=== PATIENT | male | born 1960 | race Hispanic/Latino ===

== ENCOUNTER 2019-04-06 17:02 | Emergency (ER) | payer OTHER ==
[~2019-04-06 17:02] MED LIST: AEC81 PO; ENAL20TA PO; METF-446 PO; METO25TA6 PO; PRAV40TA3 PO
[2019-04-06] MEDS ORDERED: ASPIRIN 325 MG TABLET ONE (17:07)
[2019-04-06 17:38] LABS: APPEARANCE,URINE Clear (CLEAR); BILIRUBIN,URINE Negative (NEGATIVE); COLOR,URINE Yellow (YELLOW); GLUCOSE, URINE (UA) Negative (NEGATIVE); KETONES,URINE Negative (NEGATIVE); LEUKOCYTE ESTERASE ,URINE Negative (NEGATIVE); NITRATE,URINE Negative (NEGATIVE); OCCULT BLOOD,URINE Negative (NEGATIVE); PROTEIN,URINE Negative (NEGATIVE)
[2019-04-06 17:42] LABS: AMPHET/METH SCREEN,URINE NEGATIVE (NEGATIVE); BARBITURATE SCREEN, URINE NEGATIVE (NEGATIVE); BENZODIAZEPINES SCREEN,URINE NEGATIVE (NEGATIVE); CANNABINOID SCREEN,URINE NEGATIVE (NEGATIVE); COCAINE SCREEN,URINE NEGATIVE (NEGATIVE); OPIATE SCREEN,URINE NEGATIVE (NEGATIVE); PHENCYCLIDINE SCREEN,URINE NEGATIVE (NEGATIVE)
[2019-04-06 17:49] LABS: BASOPHILS % (AUTO) 0.3 % (0.0-5.0); EOSINOPHILS % (AUTO) 0.6 % (0.0-8.0); HEMATOCRIT 41.4 % (42-54); MEAN CORPUSCULAR HEMOGLOBIN 29.9 pg (27.0-33.0); MEAN CORPUSCULAR HGB CONC 33.6 g/dL (32.0-36.0); MONOCYTES % (AUTO) 11.2 % (3.0-13.0); NEUTROPHILS % (AUTO) 68.9 % (40.0-77.0); PLATELET COUNT (AUTO) 222 K/uL (130-400); RED BLOOD CELL COUNT(AUTO) 4.65 MIL/uL (4.50-6.20); WHITE BLOOD COUNT (AUTO) 6.3 K/uL (4.8-10.8)
[2019-04-06 18:11] LABS: CREATININE 1.4 mg/dL (0.5-1.5); POTASSIUM 4.1 mmol/L (3.5-5.1)
[2019-04-06 18:15] LABS: ALBUMIN 3.7 g/dL (3.5-5.0); BILIRUBIN,TOTAL 0.4 mg/dL (0.2-1.0); TOTAL PROTEIN, SERUM 7.6 g/dL (6.0-8.3)
[2019-04-06 18:17] LABS: INR 1.04 (0.85-1.15); PARTIAL THROMBOPLASTIN TIME 26.3 SEC (26.3-35.5); PROTHROMBIN TIME 10.9 SEC (9.6-11.6)
== END 2019-04-06 21:00 | disposition home or self-care (01) ==
LOC: EDH 17:02
DX: R07.89 Other chest pain (principal); I10 Essential (primary) hypertension; E11.65 Type 2 diabetes mellitus with hyperglycemia; Z91.041 Radiographic dye allergy status
CPT/HCPCS: 36415; 71045; 80053; 80305; 81003; 82550; 83880; 84484; 85025; 85610; 85730; 93005

== ENCOUNTER 2021-08-16 01:22 | Observation (INO) | payer OTHER ==
[~2021-08-16] VITALS: Ht 162.6 cm; Wt 90.7 kg
[~2021-08-16 01:22] MED LIST changes: -ENAL20TA PO; +ENAL20TA18 PO
[2021-08-16 01:37] LABS: BASOPHILS % (AUTO) 0.3 % (0.0-5.0); EOSINOPHILS % (AUTO) 3.5 % (0.0-8.0); HEMATOCRIT 41.3 % (42-54); LYMPHOCYTES % (AUTO) 35.7 % (21.0-51.0); MEAN CORPUSCULAR HEMOGLOBIN 29.8 pg (27.0-33.0); MEAN CORPUSCULAR HGB CONC 34.4 g/dL (32.0-36.0); MEAN CORPUSCULAR VOLUME 86.8 fL (79-99); MONOCYTES % (AUTO) 10.5 % (3.0-13.0); NEUTROPHILS % (AUTO) 49.6 % (40.0-77.0); PLATELET COUNT (AUTO) 297 K/uL (130-400); RED BLOOD CELL COUNT(AUTO) 4.76 MIL/uL (4.50-6.20); RED CELL DISTRIBUTION WIDTH 12.6 % (11.0-15.5); WHITE BLOOD COUNT (AUTO) 12.3 K/uL (4.8-10.8)
[2021-08-16 01:44] LABS: POTASSIUM 3.7 mmol/L (3.5-5.1)
[2021-08-16 01:48] LABS: ALBUMIN 3.8 g/dL (3.5-5.0); BILIRUBIN,TOTAL 0.2 mg/dL (0.2-1.0); TOTAL PROTEIN, SERUM 8.1 g/dL (6.0-8.3)
[2021-08-16] MEDS ORDERED: IOHEXOL 350 MG/ML 100ML INFUS..BTL IV ONE (01:52)
[2021-08-16] MEDS ORDERED: LACTATED RINGERS 1000ML 1,000 ML IV ONE (02:00)
[2021-08-16 02:29] LABS: APPEARANCE,URINE CLEAR (CLEAR); BILIRUBIN,URINE NEGATIVE (NEGATIVE); GLUCOSE, URINE (UA) NEGATIVE (NEGATIVE); KETONES,URINE NEGATIVE (NEGATIVE); LEUKOCYTE ESTERASE ,URINE NEGATIVE (NEGATIVE); NITRATE,URINE NEGATIVE (NEGATIVE); OCCULT BLOOD,URINE TRACE-LYSED (NEGATIVE); PROTEIN,URINE NEGATIVE (NEGATIVE); UROBILINOGEN,URINE 0.2 mg/dL (0.2-1.0)
[2021-08-16 02:35] LABS: COLOR,URINE STRAW (YELLOW)
[2021-08-16 02:37] LABS: AMPHET/METH SCREEN,URINE NEGATIVE (NEGATIVE); BARBITURATE SCREEN, URINE NEGATIVE (NEGATIVE); BENZODIAZEPINES SCREEN,URINE NEGATIVE (NEGATIVE); CANNABINOID SCREEN,URINE NEGATIVE (NEGATIVE); COCAINE SCREEN,URINE POSITIVE (NEGATIVE); OPIATE SCREEN,URINE NEGATIVE (NEGATIVE); PHENCYCLIDINE SCREEN,URINE NEGATIVE (NEGATIVE)
[2021-08-16 02:39] LABS: BACTERIA,URINE None Seen /HPF (None Seen); RBC,URINE None Seen /HPF (0-1); SQUAMOUS EPITHELIAL CELL,UR Rare /HPF (0-2); WBC,URINE None Seen /HPF (0-1)
[2021-08-16] MEDS ORDERED: NEOMY SULF/BACITRA/POLYMYXIN B 1 EACH PACKET TP ONE (03:35)
[2021-08-16] MEDS ORDERED: KETOROLAC 15MG/ML VIAL (15MG/ML) IV PRN (04:00)
[2021-08-16] MEDS ORDERED: ACETAMINOPHEN 500 MG TABLET PO PRN (04:00)
[2021-08-16] MEDS: MORPHINE 4 MG SYG IVP PRN ×2 (04:48→10:46)
[2021-08-16] MEDS ORDERED: TETANUS/DIPHTHERIA TOXOID [ADULT] 0.5 ML VIAL IM ONE (04:59)
[2021-08-16 10:30] VITALS: BP 131/77
[2021-08-16 11:20] VITALS: BP 128/80
[2021-08-16 15:20] VITALS: BP 129/79
== END 2021-08-16 17:40 | disposition home or self-care (01) ==
LOC: EDH 01:22 → EDHIP 03:08 → EEVIPCON 03:08 → 4CH 10:30
PROVIDERS: ADMIT Student in an Organized Health Care Education/Training Program; ATTEND Student in an Organized Health Care Education/Training Program
DX: S81.831A Puncture wound without foreign body, right lower leg, initial encounter (principal); Z20.822 Contact with and (suspected) exposure to COVID-19; S81.832A Puncture wound without foreign body, left lower leg, initial encounter; W34.00XA Accidental discharge from unspecified firearms or gun, initial encounter; Y93.89 Activity, other specified; Y92.830 Public park as the place of occurrence of the external cause; Z23 Encounter for immunization
CPT/HCPCS: 36415; 71045; 73551; 73560; 74018; 74176; 75635; 80053; 80305; 81001; 84484; 85014; 85018; 85025; 86850; 86900; 86901; 86923; 87635; 90471; 90714; 96361; 96374; 96376; 99291; G0378 ×14; J2270 ×2; Q9967

== ENCOUNTER 2021-08-31 12:18 | Emergency (ER) | payer OTHER ==
[~2021-08-31] VITALS: Ht 165.1 cm; Wt 77.6 kg
[2021-08-31 12:20] VITALS: BP 145/84
== END 2021-08-31 15:12 | disposition left against medical advice (07) ==
LOC: EDH 12:18
DX: S81.842A Puncture wound with foreign body, left lower leg, initial encounter (principal); E11.9 Type 2 diabetes mellitus without complications; I10 Essential (primary) hypertension; W34.09XA Accidental discharge from other specified firearms, initial encounter; Y93.89 Activity, other specified; Y92.89 Other specified places as the place of occurrence of the external cause; Y99.8 Other external cause status; Z53.21 Procedure and treatment not carried out due to patient leaving prior to being seen by health care provider

== ENCOUNTER 2022-09-06 11:36 | Emergency (ER) | payer BC, OTHER ==
[~2022-09-06] VITALS: Ht 154.9 cm; Wt 76.2 kg
[2022-09-06 12:28] LABS: BASOPHILS % (AUTO) 0.5 % (0.0-5.0); EOSINOPHILS % (AUTO) 2.8 % (0.0-8.0); HEMATOCRIT 43.1 % (42-54); LYMPHOCYTES % (AUTO) 18.8 % (21.0-51.0); MEAN CORPUSCULAR HEMOGLOBIN 30.4 pg (27.0-33.0); MEAN CORPUSCULAR HGB CONC 34.6 g/dL (32.0-36.0); MONOCYTES % (AUTO) 8.8 % (3.0-13.0); NEUTROPHILS % (AUTO) 68.8 % (40.0-77.0); PLATELET COUNT (AUTO) 335 K/uL (130-400); RED CELL DISTRIBUTION WIDTH 12.3 % (11.0-15.5); WHITE BLOOD COUNT (AUTO) 7.8 K/uL (4.8-10.8)
[2022-09-06 12:46] LABS: CREATININE 0.9 mg/dL (0.5-1.5); POTASSIUM 4.3 mmol/L (3.5-5.1)
[2022-09-06 12:51] LABS: ALBUMIN 3.5 g/dL (3.5-5.0)
[2022-09-06 14:04] VITALS: BP 159/78; PULSE 85; RESP 18; O2SAT 98
[2022-09-06] MEDS ORDERED: CEPH500B PO (14:30)
== END 2022-09-06 14:53 | disposition home or self-care (01) ==
LOC: EDH 11:36
DX: J32.9 Chronic sinusitis, unspecified (principal); R04.0 Epistaxis; I10 Essential (primary) hypertension; E11.9 Type 2 diabetes mellitus without complications; Z98.890 Other specified postprocedural states; Z91.040 Latex allergy status
CPT/HCPCS: 36415; 80053; 82550; 83874; 84484; 85025; 93005; 99281

== ENCOUNTER 2023-04-09 22:12 | Emergency (ER) | payer BC ==
[~2023-04-09] VITALS: Ht 165.1 cm; Wt 73.0 kg
[~2023-04-09 22:12] MED LIST changes: -AEC81 PO; +CEPH500B PO; -ENAL20TA18 PO; -METF-446 PO; -METO25TA6 PO; -PRAV40TA3 PO
[2023-04-09 22:39] LABS: BASOPHILS # (AUTO) 0.02 K/uL (0.00-0.20); BASOPHILS % (AUTO) 0.2 % (0.0-5.0); EOSINOPHILS # (AUTO) 0.06 K/uL (0.00-0.70); EOSINOPHILS % (AUTO) 0.7 % (0.0-8.0); HEMATOCRIT 37.7 % (42-54); IMMATURE GRANULOCYTE ABSOLUTE 0.04 K/uL (0-1); LYMPHOCYTES # (AUTO) 1.5 K/uL (1.0-4.8); LYMPHOCYTES % (AUTO) 18.1 % (21.0-51.0); MEAN CORPUSCULAR HEMOGLOBIN 31.3 pg (27.0-33.0); MEAN CORPUSCULAR VOLUME 89.3 fL (79-99); MONOCYTES # (AUTO) 0.9 K/uL (0.1-1.0); MONOCYTES % (AUTO) 10.2 % (3.0-13.0); NEUTROPHILS % (AUTO) 70.3 % (40.0-77.0); PLATELET COUNT (AUTO) 275 K/uL (130-400); RED BLOOD CELL COUNT(AUTO) 4.22 MIL/uL (4.50-6.20); RED CELL DISTRIBUTION WIDTH 12.4 % (11.0-15.5); WHITE BLOOD COUNT (AUTO) 8.5 K/uL (4.8-10.8)
[2023-04-09 22:50] LABS: INR <= 0.93 (0.85-1.15); PROTHROMBIN TIME 10.7 SEC (9.6-11.6)
[2023-04-09 22:54] LABS: ALBUMIN 3.3 g/dL (3.5-5.0); BILIRUBIN,TOTAL 0.3 mg/dL (0.2-1.0); CREATININE 0.8 mg/dL (0.5-1.5); TOTAL PROTEIN, SERUM 7.4 g/dL (6.0-8.3)
[2023-04-09 23:19] LABS: B-TYPE NATRIURETIC PEPTIDE 75 pg/mL (0-100)
[2023-04-10 01:31] LABS: APPEARANCE,URINE CLEAR (CLEAR); BILIRUBIN,URINE NEGATIVE (NEGATIVE); COLOR,URINE LIGHT-YELLOW (YELLOW); GLUCOSE, URINE (UA) >=1000 mg/dL (NEGATIVE); KETONES,URINE NEGATIVE (NEGATIVE); LEUKOCYTE ESTERASE ,URINE NEGATIVE Leu/uL (NEGATIVE); NITRATE,URINE NEGATIVE (NEGATIVE); OCCULT BLOOD,URINE NEGATIVE (NEGATIVE); PROTEIN,URINE NEGATIVE (NEGATIVE); UROBILINOGEN,URINE 0.2 mg/dL (0.2-1.0)
[2023-04-10 01:32] LABS: ADD UA MICROSCOPIC YES; BACTERIA,URINE RARE /HPF (None Seen); MUCUS,URINE RARE LPF (None Seen); RBC,URINE 0-1 /HPF (0-1); SQUAMOUS EPITHELIAL CELL,UR RARE /HPF (0-2)
[2023-04-10 01:34] LABS: AMPHET/METH SCREEN,URINE NEGATIVE (NEGATIVE); BARBITURATE SCREEN, URINE NEGATIVE (NEGATIVE); BENZODIAZEPINES SCREEN,URINE NEGATIVE (NEGATIVE); CANNABINOID SCREEN,URINE POSITIVE (NEGATIVE); COCAINE SCREEN,URINE POSITIVE (NEGATIVE); OPIATE SCREEN,URINE NEGATIVE (NEGATIVE); PHENCYCLIDINE SCREEN,URINE NEGATIVE (NEGATIVE)
[2023-04-10] MEDS: CYCLOBENZAPRINE HCL 10 MG TABLET PO ONE (03:54)
[2023-04-10] MEDS: GABAPENTIN 300 MG CAPSULE PO SCH (03:54)
[2023-04-10] MEDS: POTASSIUM BICARB/CIT AC 25 MEQ TABLET.EFF PO ONE (03:54)
[2023-04-10] MEDS: IBUPROFEN 800 MG TAB PO ONE (03:55)
[2023-04-10] MEDS ORDERED: CYCL-309 PO (05:02)
[2023-04-10] MEDS ORDERED: IBUP-1493 PO (05:02)
[2023-04-10] MEDS ORDERED: GABA300C PO (05:02)
[2023-04-10 05:04] VITALS: BP 140/76; PULSE 105; RESP 17; O2SAT 98
== END 2023-04-10 05:17 | disposition home or self-care (01) ==
LOC: EDH 22:12
DX: F19.10 Other psychoactive substance abuse, uncomplicated (principal); M54.2 Cervicalgia; R07.89 Other chest pain; E11.9 Type 2 diabetes mellitus without complications; E78.00 Pure hypercholesterolemia, unspecified; I10 Essential (primary) hypertension; F17.200 Nicotine dependence, unspecified, uncomplicated; Z91.041 Radiographic dye allergy status
CPT/HCPCS: 36415; 72125; 80053; 80305; 81001; 83880; 84484; 85025; 85378; 85610; 93005

== ENCOUNTER 2023-09-05 16:18 | Emergency (ER) | payer BC ==
[~2023-09-05] VITALS: Ht 165.1 cm; Wt 76.2 kg
[~2023-09-05 16:18] MED LIST changes: -CEPH500B PO; +CYCL-309 PO; +GABA300C PO; +IBUP-1493 PO
[2023-09-05] MEDS: 0.9%NACL 1000ML 1,000 ML IV ONE (17:25)
[2023-09-05 17:46] LABS: BASOPHILS # (AUTO) 0.03 K/uL (0.00-0.20); BASOPHILS % (AUTO) 0.4 % (0.0-5.0); EOSINOPHILS # (AUTO) 0.15 K/uL (0.00-0.70); EOSINOPHILS % (AUTO) 2.1 % (0.0-8.0); HEMATOCRIT 43.5 % (42-54); IMMATURE GRANULOCYTE ABSOLUTE 0.03 K/uL (0-1); LYMPHOCYTES # (AUTO) 1.5 K/uL (1.0-4.8); LYMPHOCYTES % (AUTO) 20.8 % (21.0-51.0); MEAN CORPUSCULAR HEMOGLOBIN 30.4 pg (27.0-33.0); MEAN CORPUSCULAR HGB CONC 34.5 g/dL (32.0-36.0); MEAN CORPUSCULAR VOLUME 88.2 fL (79-99); MONOCYTES # (AUTO) 0.6 K/uL (0.1-1.0); MONOCYTES % (AUTO) 8.1 % (3.0-13.0); NEUTROPHILS % (AUTO) 68.2 % (40.0-77.0); PLATELET COUNT (AUTO) 301 K/uL (130-400); RED BLOOD CELL COUNT(AUTO) 4.93 MIL/uL (4.50-6.20); RED CELL DISTRIBUTION WIDTH 13.2 % (11.0-15.5); WHITE BLOOD COUNT (AUTO) 7.3 K/uL (4.8-10.8)
[2023-09-05 18:01] LABS: ALBUMIN 3.5 g/dL (3.5-5.0); BILIRUBIN,TOTAL 0.4 mg/dL (0.2-1.0); TOTAL PROTEIN, SERUM 7.8 g/dL (6.0-8.3)
[2023-09-05 18:22] VITALS: BP 147/70; PULSE 72; RESP 18; O2SAT 98
[2023-09-05 18:29] LABS: APPEARANCE,URINE CLEAR (CLEAR); BILIRUBIN,URINE NEGATIVE (NEGATIVE); COLOR,URINE YELLOW (YELLOW); GLUCOSE, URINE (UA) >=1000 mg/dL (NEGATIVE); KETONES,URINE NEGATIVE (NEGATIVE); LEUKOCYTE ESTERASE ,URINE NEGATIVE Leu/uL (NEGATIVE); NITRATE,URINE NEGATIVE (NEGATIVE); OCCULT BLOOD,URINE NEGATIVE (NEGATIVE); PH,URINE 5.5 (5.0-8.0); PROTEIN,URINE 30 mg/dL (NEGATIVE); UROBILINOGEN,URINE 0.2 mg/dL (0.2-1.0)
[2023-09-05 18:30] LABS: ADD UA MICROSCOPIC YES
[2023-09-05 18:32] LABS: MUCUS,URINE FEW LPF (None Seen); RBC,URINE 0-1 /HPF (0-1); SQUAMOUS EPITHELIAL CELL,UR RARE /HPF (0-2)
== END 2023-09-05 19:11 | disposition home or self-care (01) ==
LOC: EDH 16:18
DX: E11.65 Type 2 diabetes mellitus with hyperglycemia (principal); E86.0 Dehydration; R11.0 Nausea; I10 Essential (primary) hypertension; Z91.041 Radiographic dye allergy status; Z79.899 Other long term (current) drug therapy; Z98.890 Other specified postprocedural states
CPT/HCPCS: 99284; 84484; 80053; 85025; 82948; 82010; 81001; 36415; 93005; J7030

== ENCOUNTER 2023-10-07 05:06 | Emergency (ER) | payer BC ==
[~2023-10-07] VITALS: Ht 172.7 cm; Wt 76.2 kg
[2023-10-07 05:58] LABS: BASOPHILS # (AUTO) 0.02 K/uL (0.00-0.20); BASOPHILS % (AUTO) 0.3 % (0.0-5.0); EOSINOPHILS # (AUTO) 0.08 K/uL (0.00-0.70); EOSINOPHILS % (AUTO) 1.2 % (0.0-8.0); HEMATOCRIT 39.2 % (42-54); IMMATURE GRANULOCYTE ABSOLUTE 0.02 K/uL (0-1); LYMPHOCYTES # (AUTO) 1.1 K/uL (1.0-4.8); LYMPHOCYTES % (AUTO) 16.1 % (21.0-51.0); MEAN CORPUSCULAR HEMOGLOBIN 31.3 pg (27.0-33.0); MEAN CORPUSCULAR VOLUME 87.1 fL (79-99); MONOCYTES # (AUTO) 0.5 K/uL (0.1-1.0); MONOCYTES % (AUTO) 7.2 % (3.0-13.0); NEUTROPHILS # (AUTO) 5.1 K/uL (1.8-7.7); NEUTROPHILS % (AUTO) 74.9 % (40.0-77.0); PLATELET COUNT (AUTO) 291 K/uL (130-400); RED CELL DISTRIBUTION WIDTH 12.7 % (11.0-15.5); WHITE BLOOD COUNT (AUTO) 6.8 K/uL (4.8-10.8)
[2023-10-07 06:19] LABS: INR 1.03 (0.85-1.15); PROTHROMBIN TIME 11.1 SEC (9.6-11.6)
[2023-10-07 06:20] LABS: PARTIAL THROMBOPLASTIN TIME 26.3 SEC (26.3-35.5)
[2023-10-07 06:25] LABS: ALBUMIN 3.4 g/dL (3.5-5.0); BILIRUBIN,TOTAL 0.3 mg/dL (0.2-1.0); CREATININE 0.9 mg/dL (0.5-1.3); POTASSIUM 3.6 mmol/L (3.5-5.1); TOTAL PROTEIN, SERUM 7.5 g/dL (6.0-8.3)
[2023-10-07] MEDS ORDERED: ATOR40TA69 PO (08:33)
[2023-10-07] MEDS ORDERED: ASPI-1197 PO (08:33)
[2023-10-07 08:45] VITALS: BP 141/83; PULSE 79; RESP 18; O2SAT 99
[2023-10-07 09:01] LABS: APPEARANCE,URINE CLEAR (CLEAR); BILIRUBIN,URINE NEGATIVE (NEGATIVE); COLOR,URINE COLORLESS (YELLOW); GLUCOSE, URINE (UA) >=1000 mg/dL (NEGATIVE); KETONES,URINE NEGATIVE (NEGATIVE); LEUKOCYTE ESTERASE ,URINE NEGATIVE Leu/uL (NEGATIVE); NITRATE,URINE NEGATIVE (NEGATIVE); OCCULT BLOOD,URINE NEGATIVE (NEGATIVE); PH,URINE 6.5 (5.0-8.0); PROTEIN,URINE NEGATIVE (NEGATIVE); UROBILINOGEN,URINE 0.2 mg/dL (0.2-1.0)
[2023-10-07 09:02] LABS: ADD UA MICROSCOPIC YES
[2023-10-07 09:09] LABS: AMPHET/METH SCREEN,URINE NEGATIVE (NEGATIVE); BARBITURATE SCREEN, URINE NEGATIVE (NEGATIVE); BENZODIAZEPINES SCREEN,URINE NEGATIVE (NEGATIVE); CANNABINOID SCREEN,URINE POSITIVE (NEGATIVE); COCAINE SCREEN,URINE POSITIVE (NEGATIVE); OPIATE SCREEN,URINE NEGATIVE (NEGATIVE); PHENCYCLIDINE SCREEN,URINE NEGATIVE (NEGATIVE)
[2023-10-07 09:18] LABS: SQUAMOUS EPITHELIAL CELL,UR RARE /HPF (0-2); WBC,URINE 0-1 /HPF (0-1)
== END 2023-10-07 08:48 | disposition home or self-care (01) ==
LOC: EDH 05:06
DX: R07.89 Other chest pain (principal); E11.65 Type 2 diabetes mellitus with hyperglycemia; I10 Essential (primary) hypertension; F17.200 Nicotine dependence, unspecified, uncomplicated; F19.10 Other psychoactive substance abuse, uncomplicated; Z79.82 Long term (current) use of aspirin; Z79.899 Other long term (current) drug therapy; Z91.041 Radiographic dye allergy status; Z90.79 Acquired absence of other genital organ(s); Z98.890 Other specified postprocedural states
CPT/HCPCS: 36415; 71045; 80053; 80305; 81001; 84484; 85025; 85610; 85730; 93005

== ENCOUNTER 2023-10-31 10:52 | Emergency (ER) | payer BC ==
[~2023-10-31] VITALS: Ht 165.1 cm; Wt 76.2 kg
[~2023-10-31 10:52] MED LIST changes: +ASPI-1197 PO; +ATOR40TA69 PO
[2023-10-31 11:20] LABS: BASOPHILS # (AUTO) 0.02 K/uL (0.00-0.20); BASOPHILS % (AUTO) 0.3 % (0.0-5.0); EOSINOPHILS # (AUTO) 0.19 K/uL (0.00-0.70); EOSINOPHILS % (AUTO) 2.6 % (0.0-8.0); HEMATOCRIT 42.6 % (42-54); IMMATURE GRANULOCYTE ABSOLUTE 0.03 K/uL (0-1); LYMPHOCYTES # (AUTO) 2.1 K/uL (1.0-4.8); LYMPHOCYTES % (AUTO) 28.9 % (21.0-51.0); MEAN CORPUSCULAR HEMOGLOBIN 30.5 pg (27.0-33.0); MEAN CORPUSCULAR HGB CONC 35.4 g/dL (32.0-36.0); MEAN CORPUSCULAR VOLUME 86.1 fL (79-99); MONOCYTES # (AUTO) 0.7 K/uL (0.1-1.0); MONOCYTES % (AUTO) 9.9 % (3.0-13.0); NEUTROPHILS # (AUTO) 4.2 K/uL (1.8-7.7); NEUTROPHILS % (AUTO) 57.9 % (40.0-77.0); PLATELET COUNT (AUTO) 309 K/uL (130-400); RED BLOOD CELL COUNT(AUTO) 4.95 MIL/uL (4.50-6.20); RED CELL DISTRIBUTION WIDTH 13.1 % (11.0-15.5); WHITE BLOOD COUNT (AUTO) 7.3 K/uL (4.8-10.8)
[2023-10-31 11:30] LABS: CREATININE 1.2 mg/dL (0.5-1.3); POTASSIUM 3.7 mmol/L (3.5-5.1)
[2023-10-31] MEDS: MAG/ALUM/SIMETH 30 ML UDCUP PO ONE (11:30)
[2023-10-31] MEDS: FAMOTIDINE 20MG VIAL IV ONE (11:30)
[2023-10-31 12:10] LABS: APPEARANCE,URINE CLEAR (CLEAR); BILIRUBIN,URINE NEGATIVE (NEGATIVE); COLOR,URINE LIGHT-YELLOW (YELLOW); GLUCOSE, URINE (UA) NEGATIVE (NEGATIVE); KETONES,URINE NEGATIVE (NEGATIVE); LEUKOCYTE ESTERASE ,URINE NEGATIVE Leu/uL (NEGATIVE); NITRATE,URINE NEGATIVE (NEGATIVE); OCCULT BLOOD,URINE NEGATIVE (NEGATIVE); PROTEIN,URINE NEGATIVE (NEGATIVE); UROBILINOGEN,URINE 0.2 mg/dL (0.2-1.0)
[2023-10-31 12:15] LABS: ADD UA MICROSCOPIC NO
[2023-10-31] MEDS ORDERED: SUCR1TAB28 PO (12:39)
[2023-10-31] MEDS ORDERED: acetaMINOPHEN 325 MG TAB ONE (13:18)
[2023-10-31 13:23] VITALS: BP 115/95; PULSE 72; RESP 18; TEMP 97.5; O2SAT 99
== END 2023-10-31 13:26 | disposition home or self-care (01) ==
LOC: EDH 10:52
DX: K29.00 Acute gastritis without bleeding (principal); E87.1 Hypo-osmolality and hyponatremia; E11.65 Type 2 diabetes mellitus with hyperglycemia; R74.8 Abnormal levels of other serum enzymes; I10 Essential (primary) hypertension; F17.200 Nicotine dependence, unspecified, uncomplicated; Z91.041 Radiographic dye allergy status; Z79.82 Long term (current) use of aspirin; Z79.899 Other long term (current) drug therapy; Z90.79 Acquired absence of other genital organ(s); Z89.021 Acquired absence of right finger(s)
CPT/HCPCS: 99284; 96374; 84484; 80048; 83690; 85025; 81003; 36415; 93005; J3490

== ENCOUNTER 2024-01-07 01:31 | Inpatient (IN) | payer BC ==
[~2024-01-07] VITALS: Ht 165.1 cm; Wt 77.2 kg
[~2024-01-07 01:31] MED LIST changes: +SUCR1TAB28 PO
[2024-01-07 01:54] LABS: BASOPHILS # (AUTO) 0.03 K/uL (0.00-0.20); BASOPHILS % (AUTO) 0.4 % (0.0-5.0); EOSINOPHILS # (AUTO) 0.14 K/uL (0.00-0.70); EOSINOPHILS % (AUTO) 1.8 % (0.0-8.0); HEMATOCRIT 41.9 % (42-54); IMMATURE GRANULOCYTE ABSOLUTE 0.03 K/uL (0-1); LYMPHOCYTES # (AUTO) 1.6 K/uL (1.0-4.8); LYMPHOCYTES % (AUTO) 20.3 % (21.0-51.0); MEAN CORPUSCULAR HEMOGLOBIN 30.9 pg (27.0-33.0); MEAN CORPUSCULAR HGB CONC 33.9 g/dL (32.0-36.0); MEAN CORPUSCULAR VOLUME 91.1 fL (79-99); MONOCYTES # (AUTO) 0.7 K/uL (0.1-1.0); MONOCYTES % (AUTO) 8.4 % (3.0-13.0); NEUTROPHILS # (AUTO) 5.4 K/uL (1.8-7.7); NEUTROPHILS % (AUTO) 68.7 % (40.0-77.0); PLATELET COUNT (AUTO) 276 K/uL (130-400); RED CELL DISTRIBUTION WIDTH 13.1 % (11.0-15.5); WHITE BLOOD COUNT (AUTO) 7.8 K/uL (4.8-10.8)
[2024-01-07 01:59] LABS: POTASSIUM 3.7 mmol/L (3.5-5.1)
[2024-01-07 02:14] LABS: B-TYPE NATRIURETIC PEPTIDE 20 pg/mL (0-100)
--- NOTE | 2024-01-07 02:44 | ERN ---
ED Note History of Present Illness Stated Complaint: CHEST PAIN Chief Complaint: Chest Pain Time Seen by MD: 01:20 Dictation: This is 63-year-old male with multiple medical problems presented to the emergency room with complaints of left-sided chest discomfort. Initially he experienced in the left upper quadrant area and tried to rest and watch TV when he began experiencing the pain go up into the left chest area. He got concerned could not sleep and came into the ER for further evaluation. He denied any heart attack stent placements. He had a stress test many years ago He denied any diaphoresis syncope or palpitations He admitted to drinking beer last night prior to sleeping and also smoking marijuana. He also did cocaine a week ago per his report Temperature 97.2 pulse 94 respirations 20 blood pressure 159/83 with a pulse oximetry of 99% on room air His chronic medical problems include diabetes mellitus, hypertension, polysubstance abuse and prostate cancer Allergies: Coded Allergies: Iodinated Contrast Media - IV Dye (Unverified Allergy, Severe, HIVES, 08/30/14) No Allergy Information Available (Verified Allergy, Unknown, 08/30/14) Home Meds Active Scripts Sucralfate (Carafate) 1 Gram Tablet, 1 GM PO ACHS for 10 Days, #40 TAB Prov:JEFFRY VERDUZCO NP 10/31/23 Atorvastatin Calcium (LIPITOR) 40 Mg Tablet, 40 MG PO DAILYDINNER, #30 TAB Prov:LIZBETH SUNSHINE MD 10/07/23 Aspirin (Aspirin) 81 Mg Tab.chew, 81 MG PO DAILY, #30 TAB.CHEW Prov:LIZBETH SUNSHINE MD 10/07/23 Ibuprofen (Motrin/Advil) 800 Mg Tab, 800 MG PO TID, #30 TAB Prov:MAR GIORDANO MD 04/10/23 Gabapentin (Neurontin) 300 Mg Capsule, 300 MG PO TID, #60 CAP Prov:MAR GIORDANO MD 04/10/23 Cyclobenzaprine HCl (Cyclobenzaprine HCl) 10 Mg Tablet, 10 MG PO TID, #60 TAB Prov:MAR GIORDANO MD 04/10/23 Past Medical History Past Medical History: Cancer, Diabetes-Type II, Hypertension Additional Past Medical Hx: PROSTATE Surgical History: Other Surgical History Other: PROSTATE REMOVAL, RT 3RD DIGIT AMPUTATION Family History: DM, HTN Social History: Smokers, Drugs, ETOH, Lives with family, Other RN Note Reviewed/Agreed w/PFSH: Yes Review of System Dictation Constitutional: Negative for fever,chills, and weight loss Eyes: Negative for injury, pain,redness, and discharge ENT: Negative for injury,pain or swelling Cardiovascular: Positive for chest pain, denies palpitations, and edema Respiratory: Negative for shortness of breath, cough, and wheezing, Abdomen/GI: Negative for abdominal pain, nausea, vomiting, diarrhea, and constipation Back: Negative for injury and pain : Negative for injury, bleeding and discharge MS/Extremity: Negative for injury and deformity Skin: Negative for rash, and discoloration Neuro: Negative for headache, weakness, numbness, tingling, and seizure Psych: Negative for suicide ideation, homicidal ideation, and hallucinations Initial Vital Sign VS Vital Signs Date Time Temp Pulse Resp B/P (MAP) Pulse Ox O2 Delivery O2 Flow Rate FiO2 01/07/24 01:33 97.2 94 20 159/83 99 Room Air 0 01/07/24 01:50 21 Physical Exam Dictation General: awake, alert, NAD overweight looks much older Head/Face: Normocephalic, atraumatic Eyes: PERRL, EOMI, vision at baseline ENT: oral cavity clear, TMs clear, no signs of infection Neck: Trachea midline, supple, no nuchal rigidity Cardiovascular: RRR, normal S1/S2, No MRGs, no JVD, there is tenderness in the left chest area Respiratory: CTAB, no respiratory distress, No rales or wheezes Abdomen: Soft, non-tender, non-distended, normal bowel sounds, no guarding or rebound. Skin: Warm, dry, normal turgor, no rash MS/Extremity: Pulses equal, no cyanosis, neurovascular intact, FROM Neuro: COAx4, GCS 15, strength 5/5, CN 2-12 intact, normal cerebellar exam, normal gait, Psych: Normal behavior, mood, and affect normal Extremities-trace edema without any palpable cords, Homans sign is negative Results (Laboratory/Radiology) Laboratory/Radiology Laboratory Tests Test 01/07/24 01:45 01/07/24 02:11 White Blood Count 7.8 K/uL (4.8-10.8) Red Blood Count 4.60 MIL/uL (4.50-6.20) Hemoglobin 14.2 g/dL (14.0-18.0) Hematocrit 41.9 % (42-54) L Mean Corpuscular Volume 91.1 fL (79-99) Mean Corpuscular Hemoglobin 30.9 pg (27.0-33.0) Mean Corpuscular Hemoglobin Concent 33.9 g/dL (32.0-36.0) Red Cell Distribution Width 13.1 % (11.0-15.5) Platelet Count 276 K/uL (130-400) Mean Platelet Volume 8.5 fL (7.5-10.5) Immature Granulocyte % (Auto) 0.4 % (0-1) Neutrophils (%) (Auto) 68.7 % (40.0-77.0) Lymphocytes (%) (Auto) 20.3 % (21.0-51.0) L Monocytes (%) (Auto) 8.4 % (3.0-13.0) Eosinophils (%) (Auto) 1.8 % (0.0-8.0) Basophils (%) (Auto) 0.4 % (0.0-5.0) Neutrophils # (Auto) 5.4 K/uL (1.8-7.7) Lymphocytes # (Auto) 1.6 K/uL (1.0-4.8) Monocytes # (Auto) 0.7 K/uL (0.1-1.0) Eosinophils # (Auto) 0.14 K/uL (0.00-0.70) Basophils # (Auto) 0.03 K/uL (0.00-0.20) Absolute Immature Granulocyte (auto 0.03 K/uL (0-1) Nucleated Red Blood Cells 0.0 % (0.0-0.19) Sodium Level 138 mmol/L (136-145) Potassium Level 3.7 mmol/L (3.5-5.1) Chloride Level 104 mmol/L (101-111) Carbon Dioxide Level 30 mmol/L (21-32) Blood Urea Nitrogen 11 mg/dL (7-18) Creatinine 1.0 mg/dL (0.5-1.3) Glomerular Filtration Rate Calc 84 mL/min (>90) Random Glucose 158 mg/dL (70-105) H Total Calcium 9.1 mg/dL (8.5-10.1) Total Creatine Kinase 76 U/L (21-232) # B-Type Natriuretic Peptide 20 pg/mL (0-100) Troponin I < 0.05 ng/mL (0.00-0.05) Labs Reviewed?: Yes EKG Comment: Twelve lead EKG done on 01/07/2024 at 1:37 a.m. showed a heart rate of 86, [place] interval 154, QRS 82, QT/QTC 357/428 Impression normal sinus rhythm with no acute ST elevations noted. Suggestion of Q-waves in the lead 3 noted. No deep acute ST depressions either. Interpreted by ER MD Dr. Fox ED Course ED Course Orders Procedure Category Date Status Time Vital Signs Per CPOE 01/07/24 Transmitted Routine 01:37 B-Type Natriuretic LAB 01/07/24 Complete Peptide 01:37 Chest 1vw RAD 01/07/24 Taken 01:37 12 Lead Ekg Tracing- EKG 01/07/24 Logged Technical 01:37 Oxygen By Nc/Pulse Ox CPOE 01/07/24 Transmitted 01:37 Maintain Iv CPOE 01/07/24 Transmitted 01:37 Iv Insertion CPOE 01/07/24 Transmitted 01:37 Cardiac Monitoring CPOE 01/07/24 Transmitted 01:37 Pulse Oximetry With CPOE 01/07/24 Transmitted Vs And Prn 01:37 Cbc With Differential LAB 01/07/24 Complete 01:37 Activity: Br W/Brp CPOE 01/07/24 Transmitted With Assist 01:37 Creatine Kinase, Total LAB 01/07/24 Complete 01:37 Urinalysis Profile LAB 01/07/24 Logged 01:37 Troponin Poc Order LAB 01/07/24 Complete Only 01:37 Bedside Troponin-I LAB.ER 01/07/24 In Process (Poc) 01:37 Basic Metabolic Panel LAB 01/07/24 Complete 01:37 Drug Screen Urine LAB 01/07/24 Logged 01:37 Edm Admit Bridge Order ADM 01/07/24 Transmitted 03:39 Admit Orders ADM 01/07/24 Transmitted 03:39 Vital Signs Date Time Temp Pulse Resp B/P (MAP) Pulse Ox O2 Delivery O2 Flow Rate FiO2 01/07/24 01:50 98.4 92 18 141/72 99 Room Air* 0 21 01/07/24 01:33 97.2 94 20 159/83 99 Room Air 0 We will perform diagnostic labs, advanced imaging and administer medications according to the patient's complaint. Once the results are available, will review and personally interpreted the labs to rule out any acute life- threatening emergency the trach require immediate intervention and treatment. I will then re-evaluate the patient after treatment and diagnostic exams have return to determine whether the patient requires any further testing, can safely be discharged home or need further admission to hospital for additional treatment and evaluation. Labs reviewed CBC BNP 7 with a normal limits 1st set of troponins are negative. Twelve lead EKG is negative for any acute DC. The current presentation may simply be musculoskeletal pain however with patie nt's age and multiple risk factors as well as cocaine use, coronary artery disease can not be ruled out. I recommended admission to further evaluate cardiac disease and he is agreeable 3:40 a.m. patient accepted by hospitalist group nurse practitioner lorna for admission and further management HEART Score Response (Comments) Value History: Moderate suspicion (+1) 1 EKG: Repolarization changes 1 Age: 45-65yrs (+1) 1 Risk Factors: 1-2 risk factors (+1) 1 Initial Troponin: Normal limit (0) 0 HEART Score Risk: Mod Risk for MACE (4-6) Total 4 Medical Decision Making MDM MDM: Differential diagnosis: Chest pain is likely musculoskeletal however with a history of cocaine abuse, age multiple comorbidities, coronary artery disease can not be ruled out Rationale: Tests considered and ordered secondary to shared decision making include: labs, ECG and radiology Previous outside records reviewed: Old ER visits. Risk of complication and/or morbidity or mortality of patient management: None Medications-Per medication reconciliation Need for hospitalization: Patient does meet criteria for hospitalization. Need for emergency major/minor surgery: No There are no social concerns with this patient. Prescription drug management Prescriptions will include symptomatic care Patient's prior external medical records from other ER visits were reviewed by me as indicated. Prior testing and results from previous visits were reviewed. Prior tests were taken into account with medical decision making and resource utilization, independent historian/historians were used to obtain complete medical history. I independently interpreted the test that were performed, results were reviewed by me and considered findings on radiology if ordered. Medical management and examination interpretation discussions were had by me with other qualified healthcare professionals as indicated for the patient's care. Problem List Problem List: (1) Uncontrolled hypertension (2) Chest pain (3) Diabetes mellitus with hyperglycemia (4) Polysubstance abuse DX & DISP Disposition: Inpatient Decision to Admit Time: 03:07 Departure Impression: Primary Impression: Chest pain Additional Impressions: Uncontrolled hypertension, Polysubstance abuse, Diabetes mellitus with hyperglycemia Condition: Stable Additional Instructions: Patient was informed of all the diagnostic labs and procedures conducted in the emergency room today and demonstrated understanding of the results. I personally reviewed and interpreted all the diagnostic exams performed in the ER today. The patient will be admitted to the hospital for further treatment and evaluation. Disposition-admit to facility Condition-stable/guarded Course-uncertain at this time Pain status-decreased Assessment-exam unchanged Admission Certification- I certify that the patients status is appropriate and is based on my best clinical judgment and the patient's condition as documented in the medical records Referrals: MAINE REDDY MD (PCP) SANDEEP FOX MD Jan 07, 2024 02:43
[2024-01-07] MEDS ORDERED: PIOG30TA70 PO (04:03)
[2024-01-07] MEDS ORDERED: SIMV-46 PO (04:03)
[2024-01-07] MEDS ORDERED: LOSA100T59 PO (04:03)
[2024-01-07] MEDS ORDERED: METO25TA6 PO (04:03)
[2024-01-07] MEDS ORDERED: TIZA4CAP8 PO (04:03)
[2024-01-07] MEDS ORDERED: GLIM2TAB30 PO (04:03)
[2024-01-07] MEDS ORDERED: METF-446 PO (04:03)
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
[2024-01-07] MEDS: 0.9%NACL 1000ML 1,000 ML IV SCH (04:50)
[2024-01-07] MEDS ORDERED: ondanSETRON 4MG INJ IV PRN (05:00)
[2024-01-07] MEDS ORDERED: GLUCAGON 1MG KIT 1 MG ML IM PRN (05:00)
[2024-01-07] MEDS ORDERED: MAG/ALUM/SIMETH 30 ML UDCUP PO PRN (05:00)
[2024-01-07] MEDS ORDERED: DEXTROSE 50%-WATER 50 ML DISP.SYRIN IV PRN (05:00)
[2024-01-07] MEDS ORDERED: NITROGLYCERIN 0.4 MG SL TAB SL PRN (05:00)
[2024-01-07] MEDS ORDERED: acetaMINOPHEN 325 MG TAB PO PRN (05:00)
[2024-01-07 05:07] LABS: APPEARANCE,URINE CLEAR (CLEAR); BILIRUBIN,URINE NEGATIVE (NEGATIVE); COLOR,URINE LIGHT-YELLOW (YELLOW); GLUCOSE, URINE (UA) NEGATIVE (NEGATIVE); KETONES,URINE NEGATIVE (NEGATIVE); LEUKOCYTE ESTERASE ,URINE NEGATIVE Leu/uL (NEGATIVE); NITRATE,URINE NEGATIVE (NEGATIVE); OCCULT BLOOD,URINE NEGATIVE (NEGATIVE); PH,URINE 5.5 (5.0-8.0); PROTEIN,URINE NEGATIVE (NEGATIVE); UROBILINOGEN,URINE 0.2 mg/dL (0.2-1.0)
[2024-01-07 05:10] LABS: ADD UA MICROSCOPIC NO
[2024-01-07 05:15] LABS: AMPHET/METH SCREEN,URINE NEGATIVE (NEGATIVE); BARBITURATE SCREEN, URINE NEGATIVE (NEGATIVE); BENZODIAZEPINES SCREEN,URINE NEGATIVE (NEGATIVE); CANNABINOID SCREEN,URINE POSITIVE (NEGATIVE); COCAINE SCREEN,URINE POSITIVE (NEGATIVE); OPIATE SCREEN,URINE NEGATIVE (NEGATIVE); PHENCYCLIDINE SCREEN,URINE NEGATIVE (NEGATIVE)
[2024-01-07 05:41] LABS: BASOPHILS # (AUTO) 0.02 K/uL (0.00-0.20); BASOPHILS % (AUTO) 0.3 % (0.0-5.0); EOSINOPHILS # (AUTO) 0.17 K/uL (0.00-0.70); EOSINOPHILS % (AUTO) 2.6 % (0.0-8.0); HEMATOCRIT 37.1 % (42-54); IMMATURE GRANULOCYTE ABSOLUTE 0.02 K/uL (0-1); LYMPHOCYTES # (AUTO) 1.4 K/uL (1.0-4.8); LYMPHOCYTES % (AUTO) 20.8 % (21.0-51.0); MEAN CORPUSCULAR HEMOGLOBIN 31.3 pg (27.0-33.0); MEAN CORPUSCULAR VOLUME 92.3 fL (79-99); MONOCYTES # (AUTO) 0.6 K/uL (0.1-1.0); MONOCYTES % (AUTO) 9.4 % (3.0-13.0); NEUTROPHILS # (AUTO) 4.3 K/uL (1.8-7.7); NEUTROPHILS % (AUTO) 66.6 % (40.0-77.0); PLATELET COUNT (AUTO) 223 K/uL (130-400); RED BLOOD CELL COUNT(AUTO) 4.02 MIL/uL (4.50-6.20); RED CELL DISTRIBUTION WIDTH 13.2 % (11.0-15.5); WHITE BLOOD COUNT (AUTO) 6.5 K/uL (4.8-10.8)
[2024-01-07 06:01] LABS: HEMOGLOBIN A1C 6.9 % (4.0-6.0)
[2024-01-07 06:05] LABS: ALBUMIN 3.2 g/dL (3.5-5.0); BILIRUBIN,TOTAL 0.2 mg/dL (0.2-1.0); POTASSIUM 3.9 mmol/L (3.5-5.1); THYROID STIMULATING HORMONE 3.11 uIU/mL (0.36-3.74); TOTAL PROTEIN, SERUM 6.6 g/dL (6.0-8.3)
--- NOTE | 2024-01-07 06:21 | EKG ---
[facility] Test Date: 2024-01-07 Test Time: 01:37:56 Pat Name: TOMMY ESCOBAR Department: EDHIP Room: ED 12 Gender: M Grinder Lap: 1088 : 1960 Requested By: SANDEEP ATKINS Order Number: [id number] Reading MD: Annabel Brewer Measurements Intervals [place] Rate: 86 P: 19 MO: 154 QRS: 14 QRSD: 82 T: 5 QT: 357 QTc: 428 Interpretive Statements Sinus rhythm Compared to ECG 10/31/2023 11:01:01 No significant changes Electronically Signed On 01-07-2024 09:22:41 CLASSROOM TECHNOLOGY COACH by Annabel Brewer Please click the below link to view image of tracing.
[2024-01-07 06:44] LABS: ERYTHROCYTE SEDIMENTATION RATE 26 MM/HR (0-20)
--- NOTE | 2024-01-07 07:01 | HMCIMG ---
CHEST 1VW HISTORY: Chest pain COMPARISON: 10/07/2023 FINDINGS: A frontal projection of the chest was obtained. No acute pulmonary infiltrates is seen. The heart is normal in size. Prominent interstitial markings are seen. No evidence of aortic calcification is seen. IMPRESSION: 1. No acute pulmonary infiltrate is seen.
--- NOTE | 2024-01-07 07:10 | NUR ---
ASSUMED CARER AT THIS TIME. PT IS AOX3
[2024-01-07] MEDS: INSULIN humuLIN R 100 UNIT/ML 3ML SQ SCH (07:30)
--- NOTE | 2024-01-07 07:39 | PN ---
[facility] PROGRESS NOTE Date of Service: Jan 07, 2024 Time of Service: 07:39 SUBJECTIVE: Patient has been seen and examined earlier this morning during my rounding, comfortably in bed, BP 160/80, afebrile, saturating normal on room air, during my visit he is alert oriented x3, denies dizziness, no headache, no chest pain, shortness shortness for breath, no nausea, no vomiting, no abdominal pain. REVIEW OF SYSTEMS CONSTITUTIONAL: Denies fevers, chills, or night sweats. No unintentional weight loss reported. NEUROLOGICAL: Denies headache, amaurosis fugax, motor weakness, sensory deficit, vertigo/spinning sensation, gait abnormalities, or tremors. ENT: No hearing loss, otalgia, otorrhea, rhinitis, rhinorrhea, hoarseness, or sore throat. CARDIOVASCULAR: Complained of chest pain at rest Deniesdyspnea on exertion, orthopnea, paroxysmal nocturnal dyspnea, palpitations, life-threatening arrhythmias, claudication. PULMONARY: Denies any shortness of breath, cough, phlegm/sputum, hemoptysis, pleuritic chest pain. SLEEP: Denies morning headaches, daytime somnolence or napping. Denies difficulty falling asleep, staying asleep, waking from sleep. Denies knowledge of snoring. GASTROINTESTINAL: Denies any type of dysphagia to either liquids or solids. Denies nausea, vomiting, pyrosis, early satiety, abdominal pain, diarrhea, const ipation, or changes in stool consistency or caliber. Denies coffee-ground emesis, hematemesis, hematochezia, or melanotic stools. GENITOURINARY: Denies frequency, urgency, nocturia, hematuria or incontinence (Storage/Irritative symptoms.) Low urinary stream, straining to void, urinary intermittency or hesitancy, splitting of the voiding stream, terminal dribbling. ENDOCRINOLOGIC: Denies polyuria, polydipsia, polyphagia or heat/cold intolerances. HEMATOLOGIC: Denies thrombophilia/previous clots, or coagulopathy/bleeding disorders. ONCOLOGIC: Denies personal history of malignancy. DERMATOLOGIC: Denies rashes or pruritus. PSYCHIATRIC: Denies any suicidal or homicidal ideation. Denies hallucinations. PHYSICAL EXAM GENERAL APPEARANCE: The patient is awake, alert, and oriented, in no acute cardiopulmonary distress. NEUROLOGICAL: Cranial nerves II-XII grossly intact. Motor is 5/5 in bilateral upper and lower extremities proximal to distal. No sensory deficits. HEENT: Face is symmetric. Pupils are equal and reactive. Extraocular movements are intact. NECK: Supple. No JVD. No thyromegaly. No submental, submandibular, pre- /postauricular, occipital or supraclavicular lymphadenopathy. CHEST: Normal chest expansion. No Telemetry. LUNGS: Absence of any rales, rhonchi or any wheezing. CARDIOVASCULAR: Regular. S1 and S2 normal. No appreciable rubs, murmurs or gallops. ABDOMEN: Soft, nontender, and nondistended. There is no rebound, voluntary guarding, or rigidity. : Deferred. No Kelly. EXTREMITIES: Non-edematous and not cyanotic. No clubbing. Good capillary refill. SKIN: No skin breakdown. Vital Signs (last 8hr) Date Time Temp Pulse Resp B/P (MAP) Pulse Ox O2 Delivery O2 Flow Rate FiO2 01/07/24 05:14 98.2 65 18 154/74 96 Room Air* 0 21 01/07/24 01:50 98.4 92 18 141/72 99 Room Air* 0 21 01/07/24 01:33 97.2 94 20 159/83 99 Room Air 0 LABS: Laboratory: Test 01/07/24 05:34 01/07/24 04:51 01/07/24 02:11 01/07/24 01:45 Range/Units White Blood Count 6.5 4.8-10.8 K/uL Red Blood Count 4.02 L 4.50-6.20 MIL/uL Hemoglobin 12.6 L 14.0-18.0 g/dL Hematocrit 37.1 L 42-54 % Mean Corpuscular Volume 92.3 79-99 fL Mean Corpuscular Hemoglobin 31.3 27.0-33.0 pg Mean Corpuscular Hemoglobin Concent 34.0 32.0-36.0 g/dL Red Cell Distribution Width 13.2 11.0-15.5 % Platelet Count 223 130-400 K/uL Mean Platelet Volume 8.5 7.5-10.5 fL Immature Granulocyte % (Auto) 0.3 0-1 % Neutrophils (%) (Auto) 66.6 40.0-77.0 % Lymphocytes (%) (Auto) 20.8 L 21.0-51.0 % Monocytes (%) (Auto) 9.4 3.0-13.0 % Eosinophils (%) (Auto) 2.6 0.0-8.0 % Basophils (%) (Auto) 0.3 0.0-5.0 % Neutrophils # (Auto) 4.3 1.8-7.7 K/uL Lymphocytes # (Auto) 1.4 1.0-4.8 K/uL Monocytes # (Auto) 0.6 0.1-1.0 K/uL Eosinophils # (Auto) 0.17 0.00-0.70 K/uL Basophils # (Auto) 0.02 0.00-0.20 K/uL Absolute Immature Granulocyte (auto 0.02 0-1 K/uL Nucleated Red Blood Cells 0.0 0.0-0.19 % Erythrocyte Sedimentation Rate 26 H 0-20 MM/HR Sodium Level 142 136-145 mmol/L Potassium Level 3.9 3.5-5.1 mmol/L Chloride Level 106 101-111 mmol/L Carbon Dioxide Level 31 21-32 mmol/L Blood Urea Nitrogen 10 7-18 mg/dL Creatinine 1.0 0.5-1.3 mg/dL Glomerular Filtration Rate Calc 84 >90 mL/min Random Glucose 155 H 70-105 mg/dL Hemoglobin A1c 6.9 H 4.0-6.0 % Estimated Average Glucose (eAG) 151 H 70-126 mg/dL Total Calcium 8.7 8.5-10.1 mg/dL Total Bilirubin 0.2 0.2-1.0 mg/dL Aspartate Amino Transf (AST/SGOT) 13 10-37 U/L Alanine Aminotransferase (ALT/SGPT) 18 12-78 U/L Alkaline Phosphatase 103 50-136 U/L Troponin I High Sensitivity < 4 L 4-75 ng/L Total Protein 6.6 6.0-8.3 g/dL Albumin 3.2 L 3.5-5.0 g/dL Triglycerides Level 46 30-200 mg/dL Cholesterol Level 118 # <200 mg/dL LDL Cholesterol 42 0-99 mg/dL HDL Cholesterol 68 29-71 mg/dL Thyroid Stimulating Hormone (TSH) 3.11 # 0.36-3.74 uIU/mL Urine Color LIGHT-YELLOW YELLOW Urine Appearance CLEAR CLEAR Urine pH 5.5 5.0-8.0 Urine Specific [place] 1.020 1.001-1.031 Urine Protein NEGATIVE NEGATIVE mg/dL Urine Glucose (UA) NEGATIVE NEGATIVE mg/dL Urine Ketones NEGATIVE NEGATIVE mg/dL Urine Occult Blood NEGATIVE NEGATIVE Urine Nitrate NEGATIVE NEGATIVE Urine Bilirubin NEGATIVE NEGATIVE mg/dL Urine Urobilinogen 0.2 0.2-1.0 mg/dL Urine Leukocyte Esterase NEGATIVE NEGATIVE Jake/uL Urine Opiates Screen NEGATIVE NEGATIVE Urine Barbiturates Screen NEGATIVE NEGATIVE Urine Phencyclidine Screen NEGATIVE NEGATIVE Urine Amphetamines Screen NEGATIVE NEGATIVE Urine Benzodiazepines Screen NEGATIVE NEGATIVE Urine Cocaine Screen POSITIVE H NEGATIVE Urine Marijuana (THC) Screen POSITIVE H NEGATIVE Troponin I < 0.05 0.00-0.05 ng/mL Total Creatine Kinase 76 # 21-232 U/L B-Type Natriuretic Peptide 20 0-100 pg/mL Current Medications Medications (Trade) Dose Ordered Sig/Christine Route PRN Reason Start Time Stop Time Status Last Admin Dose Admin Acetaminophen (TYLenol 325MG TAB) 650 mg Q4H PRN PO MILD PAIN (1-3) 01/07/24 05:00 02/06/24 04:59 Acetaminophen (TYLenol 325MG TAB) 650 mg Q6H PRN PO TEMPERATURE GREATER THAN 101.5 01/07/24 05:00 02/06/24 04:59 Al Hydroxide/Mg Hydroxide (MAALox PLUS 30ML) 30 ml Q6H PRN PO INDIGESTION 01/07/24 05:00 02/06/24 04:59 Aspirin (Aspirin 81mg Ec Tab) 81 mg DAILY PO 01/07/24 09:00 02/06/24 08:59 Dextrose (D50w) 50 ml AD PRN IV HYPOGLYCEMIA PROTOCOL 01/07/24 05:00 02/06/24 04:59 Famotidine (Pepcid 20mg Tab) 20 mg BID PO 01/07/24 09:00 02/06/24 08:59 Glucagon (Glucagon 1mg Kit) 1 mg AD PRN IM HYPOGLYCEMIA PROTOCOL 01/07/24 05:00 02/06/24 04:59 Hydralazine HCl (APRESOLine 20MG INJ) 10 mg Q6H PRN IV ADMINISTER FOR SBP > 160 01/07/24 05:00 02/06/24 04:59 Insulin Human Regular (humuLIN R 100 UNIT/ML 3ML) INSULIN SLIDING SCAL... ACHS SQ 01/07/24 07:30 12/20/24 07:29 Nitroglycerin (Nitrostat) 0.4 mg PROTOCOL PRN SL CHEST PAIN 01/07/24 05:00 02/06/24 04:59 Ondansetron HCl (zoFRAN 4MG INJ) 4 mg Q6H PRN IV NAUSEA/VOMITING 01/07/24 05:00 02/06/24 04:59 Sodium Chloride 1,000 ml @ 75 mls/hr [id number] IV 01/07/24 05:00 02/06/24 04:59 01/07/24 04:50 75 MLS/HR DIAGNOSTICS / RADIOLOGY: [ ] ASSESSMENT: Unstable angina POA Hypertension POA Diabetes POA Hyperlipidemia POA Polysubstance abuse POA Active alcohol drinker POA PLAN: The patient to be admitted to the medical floor with telemetry Continue heart healthy diet Supportive care with IV fluids Continue patient on aspirin 81 mg p.o. daily Continue on Famotidine 20 mg p.o. bid for GI prophylaxis Continue to replace electrolytes as needed per protocol Continue on insulin sliding scale AC & HS with hypoglycemia protocol Continue prn medication for fever,pain,nausea and vomiting Home medications reviewed and reconciled Echocardiogram to evaluate ejection fraction Cardiology consultation requested, follow input and recommendation Replace electrolytes IV per protocol GI and DVT prophylaxis Further orders to follow depending on above results Plan of action discussed, all questions answered, agreed and understood the information provided. BERNABE AVALOS MD Jan 07, 2024 07:39
[2024-01-07] MEDS ORDERED: NON-FORMULARY MEDICATION 1 EACH (Tizanidine HCl 4 MG) PO PRN (08:00)
[2024-01-07] MEDS: ASPIRIN 81 MG EC TAB PO SCH (09:00)
[2024-01-07] MEDS: LoSARTan 100 MG TABLET PO SCH (09:00)
[2024-01-07] MEDS: PIOGLITAZONE 30MG TAB PO SCH (09:00)
[2024-01-07] MEDS: FAMOTIDINE 20MG TAB PO SCH (09:00)
[2024-01-07] MEDS: GLIMEPIRIDE 2 MG TABLET PO SCH (09:00)
[2024-01-07] MEDS: hydrALAZine 20MG/ML VIAL IV PRN (10:24)
--- NOTE | 2024-01-07 12:26 | NUR ---
CARDIOLOGY CONSULT DR ANDRADE AT BEDSIDE ORDERS RECIEVED
[2024-01-07] MEDS: acetaMINOPHEN 325 MG TAB PO PRN (13:03)
--- NOTE | 2024-01-07 13:05 | CONS ---
CONSULT NOTE: CARDIOLOGY Reason for consult: Chest pain HPI/story at presentation: This is a pleasant 63-year-old male with past medical history significant for diabetes hypertension hyperlipidemia and multiple other risk factors presented with complaints of atypical chest discomfort, chest pain was in the left side of the chest, associated with palpation and atypical, however, he did have pain radiating down to the left arm. However. Subjective: 01/07/2024 atypical chest pain Past medical history: See below Allergies, Meds See chart Review of systems Review of Systems Constitutional: Negative for chills and fever. HENT: Negative for ear discharge and ear pain. Eyes: Negative for photophobia and discharge. Respiratory: Negative for cough, sputum production and stridor. Cardiovascular: Negative for chest pain and palpitations. Gastrointestinal: Negative for diarrhea and vomiting. Genitourinary: Negative for frequency. Musculoskeletal: Negative for myalgias. Skin: Negative for rash. Neurological: Negative for focal weakness and seizures. Endo/Heme/Allergies: Negative for polydipsia. Psychiatric/Behavioral: Negative for hallucinations. Vitals see chart PHYSICAL EXAMINATION GENERAL: The patient is alert and oriented*3 HEENT: Nonicteric sclerae, non traumatic HEART: Regular rate and rhythm with no murmurs LUNGS: Clear to auscultation bilaterally ABDOMEN: No acute issues, non tender GENITAL, RECTAL: deferred SKIN: No rash NEUROLOGIC: NFND EXTREMITIES: No edema ASSESSMENT CHEST PAIN Atypical, left chest, associated with palpation DIABETES HYPERTENSION HYPERLIPIDEMIA POLYSUBSTANCE ABUSE, ALCOHOL USE UDS positive for cocaine CORE MEASURES On aspirin statin losartan 12/2023 OTHER MEDICAL PROBLEMS History of prostate cancer PLAN 01/07/2024 patient with atypical chest pain in setting of multiple risk factors. UDS positive for cocaine. Plan for echocardiogram, stress testing, will follow-up post. ATTESTATION I was involved substantially in the care of this patient Number and complexity of problems addressed: 1 disease with unknown prognosis Amount and or complexity of data Review of prior external note(s) from each unique source: 2+ Ordering of each unique test : 0 Review of the result(s) of each unique test: 2+ Assessment requiring an independent historian(s): No Independent interpretation of test performed by another MD/QHCP/appropriate source (not separately reported) : No Discussion of management or test interpretation with external MD/QHCP/appropriate source (not separately reported) : No Risk status (cardiac, billing related): Moderate MAHNAZ ANDRADE MD Jan 07, 2024 13:05
--- NOTE | 2024-01-07 13:11 | HMCSR ---
APPROVED REPORT EXAM: Two-dimensional and M-mode echocardiogram with Doppler and color Doppler. INDICATION ICD: Chest Pain 2D Dimensions RVDd4.0 cmLVEF(%)56.8 (>50%)LVED Vol(simp.)81.5 mL IVSd0.7 (0.7-1.1cm)FS(%)30 %LVES Vol(simp.)29.8 mL LVDd4.4 (3.8-5.6cm)LA (2D)4.4 (1.6-4.0cm)LVEF(%, simp.)63 % PWd0.7 (0.7-1.1cm)Ao Root(2D)3.2 (2.0-3.7cm)LA ESV INDEX (4CH)28.50 mL/m2 IVSs1.1 cmLVOT diam2.1 (1.8-2.4cm)LA ESV INDEX (2CH)23.70 mL/m2 LVDs3.1 (2.5-4.0cm)LA ESV INDEX (BP)28.10 mL/m2 PWs1.1 cm M-Mode Dimensions EPSS0.4 cm LA (MM)4.3 (1.6-4.0cm) Ao Root(MM)3.0 (2.0-3.7cm) Aortic Valve AoV VTI0.2 mAo Mean GR4.0 mmHgLVOT VTI0.18 m CHAZ (VMAX)2.8 cm2AVA (VTI) 2.8 cm2 Mitral Valve MV E Vmax94.6 cm/sDECEL Hioc835 ms MV A Vmax71.3 cm/sP 1/2 T42 ms E/A ratio1.3MVA (PHT)5.2 cm2 TDI E/E' Rpvgvx68.5E/E' [id number] Medial E' Peak V9.00 cm/sLateral E' Peak V8.10 cm/s Pulmonary Valve PV VTI0.23 mPV Mean GR3 mmHg Tricuspid Valve TR Vmax1.2 m/s TR Peak GR6.2 mmHg Left Ventricle The left ventricle is normal size. Normal wall motion There is normal left ventricular wall thickness . LVEF is 60-65%. The left ventricular diastolic function is normal. Right Ventricle The right ventricle is normal size. The right ventricular systolic function is normal. Atria The left atrium size is normal. The right atrium size is normal. Aortic Valve The aortic valve is normal in structure. No aortic regurgitation is present. There is no aortic valvu lar stenosis. Mitral Valve The mitral valve is normal in structure. There is no mitral valve regurgitation noted. There is no mi tral valve stenosis. Tricuspid Valve The tricuspid valve is normal in structure. There is no tricuspid valve regurgitation noted. Pulmonic Valve Not well seen There is no pulmonic valvular regurgitation. Great Vessels The aortic root is normal in size. The IVC is normal in size and collapses >50% with inspiration. Pericardium There is no pericardial effusion. Conclusion LVEF is 60-65%. The left ventricular diastolic function is normal. There is normal left ventricular wall thickness. The left ventricle is normal size. Normal wall motion There is no pericardial effusion. Normal pulmonary pressures Study quality was adequate
--- NOTE | 2024-01-07 14:05 | NUR ---
DCP: HOME Pt is living with HEMANT Ornelas [phone] in her home. Pt states they are both legally to other people. Sw educated on MPAO and Surrogate Decision Maker Law. Pt does not want his making decisions. Pt states sister Simona Canela [phone] has POA, but he is not sure if she also has MPOA. He will talk to her. Sw left copy of MPOA with pt. Sw notified Maria Del Rosario at ER registration of this to change facesheet. Pt reports he is able to complete ADLS on his own, uses a cane prn, no HH or HD services at this time. PCP is Reinaldo Weaver and uses [email or web address] for rx. DCP is home Addendum: 01/07/24 at 1406 by RADHA SIMPSON Amended: Links added.
--- NOTE | 2024-01-07 17:06 | NUR ---
PT REFUSING SLIDING SCALE COVERAGE STATES I JUST ATE DINNER WITH A COKE
--- NOTE | 2024-01-07 19:23 | NUR ---
PATIENT REFUSED TO HAVE LAB DRAW FOR TROPONIN, REASON HE DOES NOT HAVE A ROOM UPSTAIRS YET
[2024-01-07] MEDS: simVASTatin 20 MG TABLET PO SCH (21:10)
[2024-01-08] VITALS (8 sets, daily range): BP systolic 132–158; BP diastolic 75–83; PULSE 76–92; RESP 18–20; TEMP 97.9–98.4; O2SAT 97–99
[2024-01-08 05:39] LABS: HEMATOCRIT 37.6 % (42-54); MEAN CORPUSCULAR HEMOGLOBIN 31.1 pg (27.0-33.0); MEAN CORPUSCULAR VOLUME 91.5 fL (79-99); RED BLOOD CELL COUNT(AUTO) 4.11 MIL/uL (4.50-6.20); RED CELL DISTRIBUTION WIDTH 13.1 % (11.0-15.5); WHITE BLOOD COUNT (AUTO) 6.5 K/uL (4.8-10.8)
[2024-01-08] MEDS: REGADENOSON 0.4 MG/5 ML PF SYG IVP ONE (08:34)
--- NOTE | 2024-01-08 12:36 | HMCSR ---
APPROVED REPORT Height: 5 ft 5in Weight: 173 lbs TEST INDICATIONS UNSTABLE ANGINA The imaging protocol used to acquire images was Rest Tc-99m/stress Tc-99m 1 day Consent: The procedure was explained and understood by the patient. Informerd consent was witnessed Shreyas De La Rosa RN First, low dose rest was performed then high dose stress. RESTING DATA: The resting ekg shows: NSR Rest SPECT myocardial perfusion imaging was performed in supine position minutes following the intra venous injection of 12.2 mCi of Tc-99 Sestamibi. Time of rest injection: 06:30: Date: 01/08/2024 PHARMACOLOGIC STRESS: Pharmacologic stress test was performed by injecting regadenoson 0.4 mg IV push followed by the intra venous injection of 29 mCi of Tc-99 Sestamibi. Time of stress injection: 08:10: Date: 01/08/2024 Heart Rate at time of stress injection: 85 bpm. The images were gated to evaluate regional wall motion and calculate left ventricular ejection fracti on. STRESS DETAILS Reason for Termination: Infusion complete Stress Symptoms: Dyspnea Max HR Achieved: 130 bpm % of APMHR Achieved: 98 Max Blood Pressure: 185/93 mmHg Stress ECG: NSR Study quality was good. LV PERFUSION Uniform tracer uptake in all najera. No evidence of ischemia or infarction noted. EF of 70% Low risk stress test as above.
--- NOTE | 2024-01-08 15:18 | PN ---
[facility] PROGRESS NOTE Date of Service: Jan 08, 2024 Time of Service: 15:06 SUBJECTIVE: 01/07: Patient is a 63 year old male with PMH of diabetes, hypertension, hyperlipidemia, polysubstance abuse, alcohol drinker, and prostate cancer who presented to the ED with complaints of left sided chest pain. The patient was seen and examined this morning at bedside. The patient denies active chest pain, shortness of breath, chest pain radiating to the left arm, nausea, vomiting, fever, chills. The patient states he is feeling better. Patient Lexiscan shows no evidence of ischemia or infarction noted. EF of 70%. The patients 2D Echo showed normal Left ventricular diastolic function, and an EF of 60-65%. REVIEW OF SYSTEMS CONSTITUTIONAL: Denies fevers, chills, or night sweats. No unintentional weight loss reported. NEUROLOGICAL: Denies headache, amaurosis fugax, motor weakness, sensory deficit, vertigo/spinning sensation, gait abnormalities, or tremors. ENT: No hearing loss, otalgia, otorrhea, rhinitis, rhinorrhea, hoarseness, or sore throat. CARDIOVASCULAR: Denies chest pain, dyspnea on exertion, orthopnea, paroxysmal nocturnal dyspnea, palpitations, life-threatening arrhythmias, claudication. PULMONARY: Denies any shortness of breath, cough, phlegm/sputum, hemoptysis, pleuritic chest pain. SLEEP: Denies morning headaches, daytime somnolence or napping. Denies difficulty falling asleep, staying asleep, waking from sleep. Denies knowledge of snoring. GASTROINTESTINAL: Denies any type of dysphagia to either liquids or solids. Denies nausea, vomiting, pyrosis, early satiety, abdominal pain, diarrhea, constipation, or changes in stool consistency or caliber. Denies coffee-ground emesis, hematemesis, hematochezia, or melanotic stools. GENITOURINARY: Denies frequency, urgency, nocturia, hematuria or incontinence (Storage/Irritative symptoms.) Low urinary stream, straining to void, urinary intermittency or hesitancy, splitting of the voiding stream, terminal dribbling. ENDOCRINOLOGIC: Denies polyuria, polydipsia, polyphagia or heat/cold intolerances. HEMATOLOGIC: Denies thrombophilia/previous clots, or coagulopathy/bleeding disorders. ONCOLOGIC: Denies personal history of malignancy. DERMATOLOGIC: Denies rashes or pruritus. PSYCHIATRIC: Denies any suicidal or homicidal ideation. Denies hallucinations. PHYSICAL EXAM GENERAL APPEARANCE: The patient is awake, alert, and oriented, in no acute cardiopulmonary distress. NEUROLOGICAL: Cranial nerves II-XII grossly intact. Motor is 5/5 in bilateral upper and lower extremities proximal to distal. No sensory deficits. HEENT: Face is symmetric. Pupils are equal and reactive. Extraocular movements are intact. NECK: Supple. No JVD. No thyromegaly. No submental, submandibular, pre- /postauricular, occipital or supraclavicular lymphadenopathy. CHEST: Normal chest expansion. No Telemetry. LUNGS: Absence of any rales, rhonchi or any wheezing. CARDIOVASCULAR: Regular. S1 and S2 normal. No appreciable rubs, murmurs or gallops. ABDOMEN: Soft, nontender, and nondistended. There is no rebound, voluntary guarding, or rigidity. : Deferred. No Kelly. EXTREMITIES: Non-edematous and not cyanotic. No clubbing. Good capillary refill. SKIN: No skin breakdown. Vital Signs (last 8hr) Date Time Temp Pulse Resp B/P (MAP) Pulse Ox O2 Delivery O2 Flow Rate FiO2 01/08/24 11:48 98.4 92 20 158/82 100 Room Air 21 01/08/24 09:20 97 Room Air* 0 21 01/08/24 07:15 98.2 92 20 140/75 97 Room Air 21 LABS: Laboratory: Test 01/08/24 11:11 01/08/24 05:27 01/07/24 10:19 01/07/24 05:34 Range/Units Whole Blood Glucose 243 #H 70-110 MG/DL White Blood Count 6.5 4.8-10.8 K/uL Red Blood Count 4.11 L 4.50-6.20 MIL/uL Hemoglobin 12.8 L 14.0-18.0 g/dL Hematocrit 37.6 L 42-54 % Mean Corpuscular Volume 91.5 79-99 fL Mean Corpuscular Hemoglobin 31.1 27.0-33.0 pg Mean Corpuscular Hemoglobin Concent 34.0 32.0-36.0 g/dL Red Cell Distribution Width 13.1 11.0-15.5 % Platelet Count 251 130-400 K/uL Mean Platelet Volume 8.5 7.5-10.5 fL Nucleated Red Blood Cells 0.0 0.0-0.19 % Magnesium Level 1.80 1.80-2.40 mg/dL Troponin I High Sensitivity < 4 L 4-75 ng/L Immature Granulocyte % (Auto) 0.3 0-1 % Neutrophils (%) (Auto) 66.6 40.0-77.0 % Lymphocytes (%) (Auto) 20.8 L 21.0-51.0 % Monocytes (%) (Auto) 9.4 3.0-13.0 % Eosinophils (%) (Auto) 2.6 0.0-8.0 % Basophils (%) (Auto) 0.3 0.0-5.0 % Neutrophils # (Auto) 4.3 1.8-7.7 K/uL Lymphocytes # (Auto) 1.4 1.0-4.8 K/uL Monocytes # (Auto) 0.6 0.1-1.0 K/uL Eosinophils # (Auto) 0.17 0.00-0.70 K/uL Basophils # (Auto) 0.02 0.00-0.20 K/uL Absolute Immature Granulocyte (auto 0.02 0-1 K/uL Erythrocyte Sedimentation Rate 26 H 0-20 MM/HR Sodium Level 142 136-145 mmol/L Potassium Level 3.9 3.5-5.1 mmol/L Chloride Level 106 101-111 mmol/L Carbon Dioxide Level 31 21-32 mmol/L Blood Urea Nitrogen 10 7-18 mg/dL Creatinine 1.0 0.5-1.3 mg/dL Glomerular Filtration Rate Calc 84 >90 mL/min Random Glucose 155 H 70-105 mg/dL Hemoglobin A1c 6.9 H 4.0-6.0 % Estimated Average Glucose (eAG) 151 H 70-126 mg/dL Total Calcium 8.7 8.5-10.1 mg/dL Total Bilirubin 0.2 0.2-1.0 mg/dL Aspartate Amino Transf (AST/SGOT) 13 10-37 U/L Alanine Aminotransferase (ALT/SGPT) 18 12-78 U/L Alkaline Phosphatase 103 50-136 U/L Total Protein 6.6 6.0-8.3 g/dL Albumin 3.2 L 3.5-5.0 g/dL Triglycerides Level 46 30-200 mg/dL Cholesterol Level 118 # <200 mg/dL LDL Cholesterol 42 0-99 mg/dL HDL Cholesterol 68 29-71 mg/dL Thyroid Stimulating Hormone (TSH) 3.11 # 0.36-3.74 uIU/mL Test 01/07/24 04:51 01/07/24 02:11 01/07/24 01:45 Range/Units Urine Color LIGHT-YELLOW YELLOW Urine Appearance CLEAR CLEAR Urine pH 5.5 5.0-8.0 Urine Specific [place] 1.020 1.001-1.031 Urine Protein NEGATIVE NEGATIVE mg/dL Urine Glucose (UA) NEGATIVE NEGATIVE mg/dL Urine Ketones NEGATIVE NEGATIVE mg/dL Urine Occult Blood NEGATIVE NEGATIVE Urine Nitrate NEGATIVE NEGATIVE Urine Bilirubin NEGATIVE NEGATIVE mg/dL Urine Urobilinogen 0.2 0.2-1.0 mg/dL Urine Leukocyte Esterase NEGATIVE NEGATIVE Jake/uL Urine Opiates Screen NEGATIVE NEGATIVE Urine Barbiturates Screen NEGATIVE NEGATIVE Urine Phencyclidine Screen NEGATIVE NEGATIVE Urine Amphetamines Screen NEGATIVE NEGATIVE Urine Benzodiazepines Screen NEGATIVE NEGATIVE Urine Cocaine Screen POSITIVE H NEGATIVE Urine Marijuana (THC) Screen POSITIVE H NEGATIVE Troponin I < 0.05 0.00-0.05 ng/mL Total Creatine Kinase 76 # 21-232 U/L B-Type Natriuretic Peptide 20 0-100 pg/mL Current Medications Medications (Trade) Dose Ordered Sig/Christine Route PRN Reason Start Time Stop Time Status Last Admin Dose Admin Acetaminophen (TYLenol 325MG TAB) 650 mg Q4H PRN PO MILD PAIN (1-3) 01/07/24 05:00 02/06/24 04:59 01/08/24 09:29 650 MG Acetaminophen (TYLenol 325MG TAB) 650 mg Q6H PRN PO TEMPERATURE GREATER THAN 101.5 01/07/24 05:00 02/06/24 04:59 Al Hydroxide/Mg Hydroxide (MAALox PLUS 30ML) 30 ml Q6H PRN PO INDIGESTION 01/07/24 05:00 02/06/24 04:59 Aspirin (Aspirin 81mg Ec Tab) 81 mg DAILY PO 01/07/24 09:00 02/06/24 08:59 01/08/24 09:17 81 MG Dextrose (D50w) 50 ml AD PRN IV HYPOGLYCEMIA PROTOCOL 01/07/24 05:00 02/06/24 04:59 Famotidine (Pepcid 20mg Tab) 20 mg BID PO 01/07/24 09:00 02/06/24 08:59 01/08/24 09:17 20 MG Glimepiride (Glimepiride) 2 mg AM PO 01/07/24 09:00 02/06/24 08:59 01/08/24 09:17 2 MG Glucagon (Glucagon 1mg Kit) 1 mg AD PRN IM HYPOGLYCEMIA PROTOCOL 01/07/24 05:00 02/06/24 04:59 Hydralazine HCl (APRESOLine 20MG INJ) 10 mg Q6H PRN IV ADMINISTER FOR SBP > 160 01/07/24 05:00 02/06/24 04:59 01/07/24 10:24 10 MG Insulin Human Regular (humuLIN R 100 UNIT/ML 3ML) INSULIN SLIDING SCAL... ACHS SQ 01/07/24 07:30 02/06/24 07:29 01/08/24 12:45 4 UNIT Losartan Potassium (CozAAR 100MG TAB) 100 mg AM PO 01/07/24 09:00 02/06/24 08:59 01/08/24 09:17 100 MG Miscellaneous Medication (Tizanidine HCl ) 4 mg AD PRN PO P 01/07/24 08:00 01/07/24 08:05 DC Nitroglycerin (Nitrostat) 0.4 mg PROTOCOL PRN SL CHEST PAIN 01/07/24 05:00 02/06/24 04:59 Ondansetron HCl (zoFRAN 4MG INJ) 4 mg Q6H PRN IV NAUSEA/VOMITING 01/07/24 05:00 02/06/24 04:59 Pioglitazone HCl (Actos 30mg) 30 mg DAILY PO 01/07/24 09:00 02/06/24 08:59 01/08/24 09:17 30 MG Simvastatin (zoCOR) 40 mg HS PO 01/07/24 21:00 02/06/24 20:59 01/07/24 21:10 40 MG Sodium Chloride 1,000 ml @ 75 mls/hr [id number] IV 01/07/24 05:00 02/06/24 04:59 01/08/24 09:18 75 MLS/HR DIAGNOSTICS / RADIOLOGY: [place] [address] [id number] IMAGING REPORT Signed PATIENT: TOMMY ESCOBAR MR#: [id number] : 1960 SEX: M AGE: 63 LOCATION: [facility] ORDER 123 STATUS: ADM IN REPORT#: [id number] SERVICE 07 REASON: UNSTABLE ANGINA ORDERING PHYSICIAN: MAHNAZ ANDRADE MD PROCEDURE: CARD SABRINA - NM LEXISCAN CARDIOLITE APPROVED REPORT Height: 5 ft 5in Weight: 173 lbs TEST INDICATIONS UNSTABLE ANGINA The imaging protocol used to acquire images was Rest Tc-99m/stress Tc-99m 1 day Consent: The procedure was explained and understood by the patient. Informerd consent was witnessed by Laci De La Rosa RN First, low dose rest was performed then high dose stress. RESTING DATA: The resting ekg shows: NSR Rest SPECT myocardial perfusion imaging was performed in supine position minutes following the intravenous injection of 12.2 mCi of Tc-99 Sestamibi. Time of rest injection: 06:30: Date: 01/08/2024 PHARMACOLOGIC STRESS: Pharmacologic stress test was performed by injecting regadenoson 0.4 mg IV push followed by the intravenous injection of 29 mCi of Tc-99 Sestamibi. Time of stress injection: 08:10: Date: 01/08/2024 Heart Rate at time of stress injection: 85 bpm. The images were gated to evaluate regional wall motion and calculate left ventricular ejection fraction. STRESS DETAILS Reason for Termination: Infusion complete Stress Symptoms: Dyspnea Max HR Achieved: 130 bpm % of APMHR Achieved: 98 Max Blood Pressure: 185/93 mmHg Stress ECG: NSR Study quality was good. LV PERFUSION Uniform tracer uptake in all najera. No evidence of ischemia or infarction noted. EF of 70% Low risk stress test as above. DICTATED BY: MAHNAZ ANDRADE MD DATE: 01/08/24716 ELECTRONICALLY SIGNED BY: MAHNAZ ANDRADE MD DATE: 01/08/[address] [place] [id number] IMAGING REPORT Signed PATIENT: TOMMY ESCOBAR MR#: [id number] : 1960 SEX: M AGE: 63 LOCATION: [facility] ORDER 8 STATUS: ADM IN REPORT#: [id number] SERVICE 1 REASON: cp ORDERING PHYSICIAN: AILYN MANSFIELD PROCEDURE: ECHO CMP - ECHO 2-D COMPLETE APPROVED REPORT EXAM: Two-dimensional and M-mode echocardiogram with Doppler and color Doppler. INDICATION ICD: Chest Pain 2D Dimensions RVDd 4.0 cm LVEF(%) 56.8 (>50%) LVED Vol(simp.) 81.5 mL IVSd 0.7 (0.7-1.1cm) FS(%) 30 % LVES Vol(simp.) 29.8 mL LVDd 4.4 (3.8-5.6cm) LA (2D) 4.4 (1.6-4.0cm) LVEF(%, simp.) 63 % PWd 0.7 (0.7-1.1cm) Ao Root(2D) 3.2 (2.0-3.7cm) LA ESV INDEX (4CH) 28.50 mL/m2 IVSs 1.1 cm LVOT diam 2.1 (1.8-2.4cm) LA ESV INDEX (2CH) 23.70 mL/m2 LVDs 3.1 (2.5-4.0cm) LA ESV INDEX (BP) 28.10 mL/m2 PWs 1.1 cm M-Mode Dimensions EPSS 0.4 cm LA (MM) 4.3 (1.6-4.0cm) Ao Root(MM) 3.0 (2.0-3.7cm) Aortic Valve AoV VTI 0.2 m Ao Mean GR 4.0 mmHg LVOT VTI 0.18 m CHAZ (VMAX) 2.8 cm2 CHAZ (VTI) 2.8 cm2 Mitral Valve MV E Vmax 94.6 cm/s DECEL Time 190 ms MV A Vmax 71.3 cm/s P 1/2 T 42 ms E/A ratio 1.3 MVA (PHT) 5.2 cm2 TDI E/E' Medial 10.5 E/E' Lateral 11.7 Medial E' Peak V 9.00 cm/s Lateral E' Peak V 8.10 cm/s Pulmonary Valve PV VTI 0.23 m PV Mean GR 3 mmHg Tricuspid Valve TR Vmax 1.2 m/s TR Peak GR 6.2 mmHg Left Ventricle The left ventricle is normal size. Normal wall motion There is normal left ventricular wall thickness. LVEF is 60-65%. The left ventricular diastolic function is normal. Right Ventricle The right ventricle is normal size. The right ventricular systolic function is normal. Atria The left atrium size is normal. The right atrium size is normal. Aortic Valve The aortic valve is normal in structure. No aortic regurgitation is present. Th ere is no aortic valvular stenosis. Mitral Valve The mitral valve is normal in structure. There is no mitral valve regurgitation noted. There is no mitral valve stenosis. Tricuspid Valve The tricuspid valve is normal in structure. There is no tricuspid valve regurgitation noted. Pulmonic Valve Not well seen There is no pulmonic valvular regurgitation. Great Vessels The aortic root is normal in size. The IVC is normal in size and collapses >50% with inspiration. Pericardium There is no pericardial effusion. Conclusion LVEF is 60-65%. The left ventricular diastolic function is normal. There is normal left ventricular wall thickness. The left ventricle is normal size. Normal wall motion There is no pericardial effusion. Normal pulmonary pressures Study quality was adequate DICTATED BY: MAHNAZ ANDRADE MD DATE: 01/07/24 1157 ELECTRONICALLY SIGNED BY: MAHNAZ ANDRADE MD DATE: 01/07/24 1311 [place] [address] [place], [place] [id number] IMAGING REPORT Signed PATIENT: TOMMY ESCOBAR MR#: [id number] : 1960 SEX: M AGE: 63 LOCATION: [facility] ORDER 8 STATUS: ADM IN REPORT#: [id number] SERVICE 6 REASON: CHEST PAIN ORDERING PHYSICIAN: SANDEEP ATKINS MD PROCEDURE: CXR1VW - CHEST 1VW CHEST 1VW HISTORY: Chest pain COMPARISON: 10/07/2023 FINDINGS: A frontal projection of the chest was obtained. No acute pulmonary infiltrates is seen. The heart is normal in size. Prominent interstitial markings are seen. No evidence of aortic calcification is seen. IMPRESSION: 1. No acute pulmonary infiltrate is seen. DICTATED BY: LORNA THOMAS MD DATE: 01/07/2458 ELECTRONICALLY SIGNED BY: LORNA THOMAS MD DATE: 01/07/24 07 ASSESSMENT: Unstable angina POA Hypertension POA Diabetes POA Hyperlipidemia POA Polysubstance abuse POA Active alcohol drinker POA PLAN: Unstable angina Lexiscan stress test: Normal study 2D Echo: Left ventricular diastolic function normal. Left ventricular ejection fraction 60-65% Continue patient on aspirin 81 mg p.o. daily Toxicology: positive for cocaine and marijuana We will continue to follow cardiology recommendations Lexiscan results show no evidence of ischemia or infarction. Ejection fraction of 70%. Patient is clear for discharge. This plan has been discussed and approved by my attending. ARSENIO OGDEN MD Jan 08, 2024 15:18
--- NOTE | 2024-01-08 19:36 | PN ---
CARDIOLOGY Reason for consult: Chest pain HPI/story at presentation: This is a pleasant 63-year-old male with past medical history significant for diabetes hypertension hyperlipidemia and multiple other risk factors presented with complaints of atypical chest discomfort, chest pain was in the left side of the chest, associated with palpation and atypical, however, he did have pain radiating down to the left arm. However. Subjective: 01/07/2024 atypical chest pain 01/08/2024 no complaints Past medical history: See below Allergies, Meds See chart Review of systems Review of Systems Constitutional: Negative for chills and fever. HENT: Negative for ear discharge and ear pain. Eyes: Negative for photophobia and discharge. Respiratory: Negative for cough, sputum production and stridor. Cardiovascular: Negative for chest pain and palpitations. Gastrointestinal: Negative for diarrhea and vomiting. Genitourinary: Negative for frequency. Musculoskeletal: Negative for myalgias. Skin: Negative for rash. Neurological: Negative for focal weakness and seizures. Endo/Heme/Allergies: Negative for polydipsia. Psychiatric/Behavioral: Negative for hallucinations. Vitals see chart PHYSICAL EXAMINATION GENERAL: The patient is alert and oriented*3 HEENT: Nonicteric sclerae, non traumatic HEART: Regular rate and rhythm with no murmurs LUNGS: Clear to auscultation bilaterally ABDOMEN: No acute issues, non tender GENITAL, RECTAL: deferred SKIN: No rash NEUROLOGIC: NFND EXTREMITIES: No edema ASSESSMENT CHEST PAIN stress, echo normal 12/2023 Atypical, left chest, associated with palpation DIABETES HYPERTENSION HYPERLIPIDEMIA POLYSUBSTANCE ABUSE, ALCOHOL USE UDS positive for cocaine CORE MEASURES On aspirin statin losartan 12/2023 OTHER MEDICAL PROBLEMS History of prostate cancer PLAN 01/07/2024 patient with atypical chest pain in setting of multiple risk factors. UDS positive for cocaine. Plan for echocardiogram, stress testing, will follow-up post. 01/08/2024 Echocardiogram, stress test were within normal limits. Can be discharged home from a cardiac standpoint. ATTESTATION I was involved substantially in the care of this patient Number and complexity of problems addressed: 1 disease with unknown prognosis Amount and or complexity of data Review of prior external note(s) from each unique source: 2+ Ordering of each unique test : 0 Review of the result(s) of each unique test: 2+ Assessment requiring an independent historian(s): No Independent interpretation of test performed by another MD/QHCP/appropriate source (not separately reported) : No Discussion of management or test interpretation with external MD/QHCP/appropriate source (not separately reported) : No Risk status (cardiac, billing related): Moderate Vitals/Labs Vital Signs Date Time Temp Pulse Resp B/P (MAP) Pulse Ox O2 Delivery O2 Flow Rate FiO2 01/08/24 19:23 99 Room Air* 0 21 01/08/24 15:20 98.2 79 20 134/83 Laboratory Tests 01/08/24 05:27 Medications Current Medications Acetaminophen 650 mg Q6H PRN PO; Start 01/07/24 at 05:00; Stop 02/06/24 at 04:59 Acetaminophen 650 mg Q4H PRN PO Last administered on 01/08/24at 09:29; Start 01/07/24 at 05:00; Stop 02/06/24 at 04:59 Ondansetron HCl 4 mg Q6H PRN IV; Start 01/07/24 at 05:00; Stop 02/06/24 at 04:59 Al Hydroxide/Mg Hydroxide 30 ml Q6H PRN PO; Start 01/07/24 at 05:00; Stop 02/06/24 at 04:59 Nitroglycerin 0.4 mg PROTOCOL PRN SL; Start 01/07/24 at 05:00; Stop 02/06/24 at 04:59 Famotidine 20 mg BID PO Last administered on 01/08/24at 09:17; Start 01/07/24 at 09:00; Stop 02/06/24 at 08:59 Sodium Chloride 1,000 ml @ 75 mls/hr [id number] IV Last administered on 01/08/24at 09:18; Start 01/07/24 at 05:00; Stop 02/06/24 at 04:59 Insulin Human Regular INSULIN SLIDING SCAL... ACHS SQ Last administered on 01/08/24at 12:45; Start 01/07/24 at 07:30; Stop 02/06/24 at 07:29 Dextrose 50 ml AD PRN IV; Start 01/07/24 at 05:00; Stop 02/06/24 at 04:59 Glucagon 1 mg AD PRN IM; Start 01/07/24 at 05:00; Stop 02/06/24 at 04:59 Aspirin 81 mg DAILY PO Last administered on 01/08/24at 09:17; Start 01/07/24 at 09:00; Stop 02/06/24 at 08:59 Hydralazine HCl 10 mg Q6H PRN IV Last administered on 01/07/24at 10:24; Start 01/07/24 at 05:00; Stop 02/06/24 at 04:59 Glimepiride 2 mg AM PO Last administered on 01/08/24at 09:17; Start 01/07/24 at 09:00; Stop 02/06/24 at 08:59 Losartan Potassium 100 mg AM PO Last administered on 01/08/24at 09:17; Start 01/07/24 at 09:00; Stop 02/06/24 at 08:59 Pioglitazone HCl 30 mg DAILY PO Last administered on 01/08/24at 09:17; Start 01/07/24 at 09:00; Stop 02/06/24 at 08:59 Simvastatin 40 mg HS PO Last administered on 01/07/24at 21:10; Start 01/07/24 at 21:00; Stop 02/06/24 at 20:59 Miscellaneous Medication 4 mg AD PRN PO; Start 01/07/24 at 08:00; Stop 01/07/24 at 08:05; Status DC Regadenoson 0.4 mg ONCE ONCE IVP Last administered on 01/08/24at 08:34; Start 01/08/24 at 07:00; Stop 01/08/24 at 07:01; Status DC MAHNAZ ANDRADE MD Jan 08, 2024 19:36
--- NOTE | 2024-01-08 19:43 | DS ---
Discharge Summary Hospital Course Summary: The patient is a 63 year old male with a Past medical history of diabetes, hypertension, hyperlipidemia, polysubstance abuse, alcohol drinker, and prostate cancer who presented to the ED with complaints of left sided chest pain. On arrival to the emergency department, the patient had an EKG reading, which showed sinus rhythm with a heart rate of 86. Troponin and BNP were within normal range. Toxicology report was positive for cocaine and marijuana. Cardiology was consulted. Patient had a 2D Echocardiogram done, as well as a chest x-ray, and a Lexiscan stress test. Patient Lexiscan shows no evidence of ischemia or infarction noted, with an ejection fraction of 70%. The patients 2D Echo showed normal Left ventricular diastolic function, and an EF of 60-65%. The patients chest x-ray came back with no acute sign of pulmonary infiltrate. The patient was cleared for discharge. Research Computing Specialist(s): Cardiology Procedure(s): [address] [address] IMAGING REPORT Signed PATIENT: TOMMY ESCOBAR MR#: [id number] : 1960 SEX: M AGE: 63 LOCATION: [facility] ORDER 1231 STATUS: ADM IN REPORT#: [id number] SERVICE 0700 REASON: UNSTABLE ANGINA ORDERING PHYSICIAN: MAHNAZ ANDRADE MD PROCEDURE: CARD SABRINA - NM LEXISCAN CARDIOLITE APPROVED REPORT Height: 5 ft 5in Weight: 173 lbs TEST INDICATIONS UNSTABLE ANGINA The imaging protocol used to acquire images was Rest Tc-99m/stress Tc-99m 1 day Consent: The procedure was explained and understood by the patient. Informerd consent was witnessed by Laci De La Rosa RN First, low dose rest was performed then high dose stress. RESTING DATA: The resting ekg shows: NSR Rest SPECT myocardial perfusion imaging was performed in supine position minutes following the intravenous injection of 12.2 mCi of Tc-99 Sestamibi. Time of rest injection: 06:30: Date: 01/08/2024 PHARMACOLOGIC STRESS: Pharmacologic stress test was performed by injecting regadenoson 0.4 mg IV push followed by the intravenous injection of 29 mCi of Tc-99 Sestamibi. Time of stress injection: 08:10: Date: 01/08/2024 Heart Rate at time of stress injection: 85 bpm. The images were gated to evaluate regional wall motion and calculate left ventricular ejection fraction. STRESS DETAILS Reason for Termination: Infusion complete Stress Symptoms: Dyspnea Max HR Achieved: 130 bpm % of APMHR Achieved: 98 Max Blood Pressure: 185/93 mmHg Stress ECG: NSR Study quality was good. LV PERFUSION Uniform tracer uptake in all najera. No evidence of ischemia or infarction noted. EF of 70% Low risk stress test as above. DICTATED BY: MAHNAZ ANDRADE MD DATE: 01/08/24716 ELECTRONICALLY SIGNED BY: MAHNAZ ANDRADE MD DATE: 01/08/24 [address] [id number] IMAGING REPORT Signed PATIENT: TOMMY ESCOBAR MR#: [id number] : 1960 SEX: M AGE: 63 LOCATION: [facility] ORDER 8 STATUS: ADM IN REPORT#: [id number] SERVICE 1 REASON: cp ORDERING PHYSICIAN: AILYN MANSFIELD PROCEDURE: ECHO CMP - ECHO 2-D COMPLETE APPROVED REPORT EXAM: Two-dimensional and M-mode echocardiogram with Doppler and color Doppler. INDICATION ICD: Chest Pain 2D Dimensions RVDd 4.0 cm LVEF(%) 56.8 (>50%) LVED Vol(simp.) 81.5 mL IVSd 0.7 (0.7-1.1cm) FS(%) 30 % LVES Vol(simp.) 29.8 mL LVDd 4.4 (3.8-5.6cm) LA (2D) 4.4 (1.6-4.0cm) LVEF(%, simp.) 63 % PWd 0.7 (0.7-1.1cm) Ao Root(2D) 3.2 (2.0-3.7cm) LA ESV INDEX (4CH) 28.50 mL/m2 IVSs 1.1 cm LVOT diam 2.1 (1.8-2.4cm) LA ESV INDEX (2CH) 23.70 mL/m2 LVDs 3.1 (2.5-4.0cm) LA ESV INDEX (BP) 28.10 mL/m2 PWs 1.1 cm M-Mode Dimensions EPSS 0.4 cm LA (MM) 4.3 (1.6-4.0cm) Ao Root(MM) 3.0 (2.0-3.7cm) Aortic Valve AoV VTI 0.2 m Ao Mean GR 4.0 mmHg LVOT VTI 0.18 m CHAZ (VMAX) 2.8 cm2 CHAZ (VTI) 2.8 cm2 Mitral Valve MV E Vmax 94.6 cm/s DECEL Time 190 ms MV A Vmax 71.3 cm/s P 1/2 T 42 ms E/A ratio 1.3 MVA (PHT) 5.2 cm2 TDI E/E' Medial 10.5 E/E' Lateral 11.7 Medial E' Peak V 9.00 cm/s Lateral E' Peak V 8.10 cm/s Pulmonary Valve PV VTI 0.23 m PV Mean GR 3 mmHg Tricuspid Valve TR Vmax 1.2 m/s TR Peak GR 6.2 mmHg Left Ventricle The left ventricle is normal size. Normal wall motion There is normal left ventricular wall thickness. LVEF is 60-65%. The left ventricular diastolic function is normal. Right Ventricle The right ventricle is normal size. The right ventricular systolic function is normal. Atria The left atrium size is normal. The right atrium size is normal. Aortic Valve The aortic valve is normal in structure. No aortic regurgitation is present. There is no aortic valvular stenosis. Mitral Valve The mitral valve is normal in structure. There is no mitral valve regurgitation noted. There is no mitral valve stenosis. Tricuspid Valve The tricuspid valve is normal in structure. There is no tricuspid valve regurgitation noted. Pulmonic Valve Not well seen There is no pulmonic valvular regurgitation. Great Vessels The aortic root is normal in size. The IVC is normal in size and collapses >50% with inspiration. Pericardium There is no pericardial effusion. Conclusion LVEF is 60-65%. The left ventricular diastolic function is normal. There is normal left ventricular wall thickness. The left ventricle is normal size. Normal wall motion There is no pericardial effusion. Normal pulmonary pressures Study quality was adequate DICTATED BY: MAHNAZ ANDRADE MD DATE: 01/07/24 1157 ELECTRONICALLY SIGNED BY: MAHNAZ ANDRADE MD DATE: 01/07/24 [id number] [place] [id number] IMAGING REPORT Signed PATIENT: TOMMY ESCOBAR MR#: [id number] : 1960 SEX: M AGE: 63 LOCATION: [facility] ORDER 8 STATUS: ADM IN REPORT#: [id number] SERVICE 6 REASON: CHEST PAIN ORDERING PHYSICIAN: SANDEEP ATKINS MD PROCEDURE: CXR1VW - CHEST 1VW CHEST 1VW HISTORY: Chest pain COMPARISON: 10/07/2023 FINDINGS: A frontal projection of the chest was obtained. No acute pulmonary infiltrates is seen. The heart is normal in size. Prominent interstitial markings are seen. No evidence of aortic calcification is seen. IMPRESSION: 1. No acute pulmonary infiltrate is seen. DICTATED BY: LORNA THOMAS MD DATE: 01/07/24 0658 ELECTRONICALLY SIGNED BY: LORNA THOMAS MD DATE: 01/07/24 0701 Assessment/Plan: ASSESSMENT: Unstable angina resolved Hypertension POA Diabetes POA Hyperlipidemia POA Polysubstance abuse POA Active alcohol drinker POA Discharge Instructions: FOLLOW UP APPOINTMENTS: Patient to follow up with primary care physician within 1 week upon discharge. PROCEDURES: None IMAGING: Report attached to summary MICROBIOLOGY: n/a ACTIVITY: Ab bessy HOME MEDICATIONS: Continued NEW MEDICATIONS: n/a TEACHING: We reinforced the importance of compliance with follow up appointment and medication compliance. We educated the patient on the harmful effects of cocaine use, emphasizing its potential to exacerbate cardiovascular conditions, increase the risk of angina, and contribute to long-term heart damage. EMERGENCY INSTRUCTIONS: The patient was instructed to present to the nearest emergency department or call 911 should their symptoms return or worsen. Home Medications: Active Scripts Sucralfate (Carafate) 1 Gram Tablet, 1 GM PO ACHS for 10 Days, #40 TAB Prov:JEFFRY VERDUZCO NP 10/31/23 Atorvastatin Calcium (LIPITOR) 40 Mg Tablet, 40 MG PO DAILYDINNER, #30 TAB Prov:LIZBETH SUNSHINE MD 10/07/23 Aspirin (Aspirin) 81 Mg Tab.chew, 81 MG PO DAILY, #30 TAB.CHEW Prov:LIZBETH SUNSHINE MD 10/07/23 Ibuprofen (Motrin/Advil) 800 Mg Tab, 800 MG PO TID, #30 TAB Prov:MAR GIORDANO MD 04/10/23 Gabapentin (Neurontin) 300 Mg Capsule, 300 MG PO TID, #60 CAP Prov:MAR GIORDANO MD 04/10/23 Cyclobenzaprine HCl (Cyclobenzaprine HCl) 10 Mg Tablet, 10 MG PO TID, #60 TAB Prov:MAR GIORDANO MD 04/10/23 Reported Medications Metoprolol Tartrate (Metoprolol Tartrate) 25 Mg Tablet, 1 TAB PO AM for 30 Days, #60 TAB 0 Refills 01/07/24 Losartan Potassium (Losartan Potassium) 100 Mg Tablet, 100 MG PO AM, TAB 01/07/24 Pioglitazone HCl (Pioglitazone HCl) 30 Mg Tablet, 1 TAB PO DAILY for 30 Days, #30 TAB 0 Refills 01/07/24 Simvastatin (Simvastatin) 40 Mg Tablet, 40 MG PO HS, TAB 01/07/24 Glimepiride (Glimepiride) 2 Mg Tablet, 2 MG PO AM, TAB 01/07/24 Tizanidine HCl (Tizanidine HCl) 4 Mg Capsule, 4 MG PO AD PRN for PAIN, CAP 01/07/24 Metformin HCl (Metformin HCl) 1,000 Mg Tablet, 1000 MG PO BID, TAB 01/07/24 ARSENIO OGDEN MD Jan 08, 2024 19:43
== END 2024-01-08 19:43 | disposition home or self-care (01) | DRG 311 ==
LOC: EDH 01:31 → EDHIP 04:32 → 3BH 01-08 00:27
PROVIDERS: ADMIT Internal Medicine; ATTEND Internal Medicine
PROC: 4A12XM4 Monitoring of Cardiac Stress, External Approach (ICD-10-PCS; principal; 2024-01-08)
PROC: 3E073KZ Introduction of Other Diagnostic Substance into Coronary Artery, Percutaneous Approach (ICD-10-PCS; 2024-01-08)
DX: I20.0 Unstable angina (principal); E78.5 Hyperlipidemia, unspecified; I10 Essential (primary) hypertension; F14.10 Cocaine abuse, uncomplicated; E11.65 Type 2 diabetes mellitus with hyperglycemia; Z82.49 Family history of ischemic heart disease and other diseases of the circulatory system; Z83.3 Family history of diabetes mellitus; Z85.46 Personal history of malignant neoplasm of prostate
CPT/HCPCS: 36415; 71045; 78452; 80048; 80053; 80061; 80305; 81003; 82550; 82948; 83036; 83735; 83880; 84443; 84484; 85025; 85027; 85651; 93005; 93017; 93306; 96374; 96375; 99285; A9500; G0378; J0360; J2785; J7030

== ENCOUNTER 2024-03-31 15:08 | Emergency (ER) | payer BC, OTHER ==
[~2024-03-31] VITALS: Ht 165.1 cm; Wt 82.6 kg
[~2024-03-31 15:08] MED LIST changes: +GLIM2TAB30 PO; +LOSA100T59 PO; +METF-446 PO; +METO25TA6 PO; +PIOG30TA70 PO; +SIMV-46 PO; +TIZA4CAP8 PO
[2024-03-31 15:52] VITALS: BP 155/84; PULSE 108; RESP 20; TEMP 98.3
--- NOTE | 2024-03-31 16:53 | EKG ---
[facility] Test Date: 2024-03-31 Test Time: 15:00:38 Pat Name: TOMMY ESCOBAR Department: [facility] Room: Gender: M Seating Captain: [id number] : 1960 Requested By: MADELYN CROUCH Order Number: [id number] Reading MD: Annabel Brewer Measurements Intervals [place] Rate: 100 P: 23 WI: 155 QRS: 34 QRSD: 76 T: 1 QT: 336 QTc: 434 Interpretive Statements Sinus tachycardia Compared to ECG 01/07/2024 01:37:56 Sinus rhythm no longer present Electronically Signed On 03-31-2024 16:58:56 PCB DESIGNER by Annabel Brewer Please click the below link to view image of tracing.
[2024-03-31 16:54] LABS: BASOPHILS # (AUTO) 0.03 K/uL (0.00-0.20); BASOPHILS % (AUTO) 0.4 % (0.0-5.0); EOSINOPHILS # (AUTO) 0.14 K/uL (0.00-0.70); HEMATOCRIT 43.5 % (42-54); IMMATURE GRANULOCYTE ABSOLUTE 0.02 K/uL (0-1); LYMPHOCYTES # (AUTO) 1.5 K/uL (1.0-4.8); MEAN CORPUSCULAR HEMOGLOBIN 30.6 pg (27.0-33.0); MEAN CORPUSCULAR HGB CONC 34.9 g/dL (32.0-36.0); MEAN CORPUSCULAR VOLUME 87.7 fL (79-99); MONOCYTES # (AUTO) 0.6 K/uL (0.1-1.0); NEUTROPHILS # (AUTO) 4.7 K/uL (1.8-7.7); NEUTROPHILS % (AUTO) 67.3 % (40.0-77.0); PLATELET COUNT (AUTO) 392 K/uL (130-400); RED BLOOD CELL COUNT(AUTO) 4.96 MIL/uL (4.50-6.20); RED CELL DISTRIBUTION WIDTH 12.3 % (11.0-15.5)
[2024-03-31 17:12] LABS: MAGNESIUM 1.6 mg/dL (1.80-2.40)
[2024-03-31 17:20] LABS: B-TYPE NATRIURETIC PEPTIDE 5 pg/mL (0-100)
--- NOTE | 2024-03-31 18:49 | ERN ---
General Chief Complaint: Chest Pain Stated Complaint: CHEST PAIN Time Seen by MD: 17:05 Time Seen by Midlevel: 17:05 Source: patient History of Present Illness Initial Comments Patient is a 64-year-old male with a past medical history of prostate cancer, type 2 diabetes, and hypertension presenting to the emergency department with left-sided chest pain that radiates to his back the pain is reproducible with movement. The pain is worse when the patient lies down. Denies any shortness of breath, cough, or any other symptoms at this time. Patient is an occasional drinker and denies ever smoking tobacco products. Allergies: Coded Allergies: Iodinated Contrast Media - IV Dye (Unverified Allergy, Severe, HIVES, 08/30/14) No Allergy Information Available (Verified Allergy, Unknown, 08/30/14) Home Meds Active Scripts Sucralfate (Carafate) 1 Gram Tablet, 1 GM PO ACHS for 10 Days, #40 TAB Prov:JEFFRY VERDUZCO ENDOSCOPY TECHNICIAN 10/31/23 Atorvastatin Calcium (LIPITOR) 40 Mg Tablet, 40 MG PO DAILYDINNER, #30 TAB Prov:LIZBETH SUNSHINE MD 10/07/23 Aspirin (Aspirin) 81 Mg Tab.chew, 81 MG PO DAILY, #30 TAB.CHEW Prov:LIZBETH SUNSHINE MD 10/07/23 Ibuprofen (Motrin/Advil) 800 Mg Tab, 800 MG PO TID, #30 TAB Prov:MAR GIORDANO MD 04/10/23 Gabapentin (Neurontin) 300 Mg Capsule, 300 MG PO TID, #60 CAP Prov:MAR GIORDANO MD 04/10/23 Cyclobenzaprine HCl (Cyclobenzaprine HCl) 10 Mg Tablet, 10 MG PO TID, #60 TAB Prov:MAR GIORDANO MD 04/10/23 Reported Medications Metoprolol Tartrate (Metoprolol Tartrate) 25 Mg Tablet, 1 TAB PO AM for 30 Days, #60 TAB 0 Refills 01/07/24 Losartan Potassium (Losartan Potassium) 100 Mg Tablet, 100 MG PO AM, TAB 01/07/24 Pioglitazone HCl (Pioglitazone HCl) 30 Mg Tablet, 1 TAB PO DAILY for 30 Days, #30 TAB 0 Refills 01/07/24 Simvastatin (Simvastatin) 40 Mg Tablet, 40 MG PO HS, TAB 11/20/24 Glimepiride (Glimepiride) 2 Mg Tablet, 2 MG PO AM, TAB 01/07/24 Tizanidine HCl (Tizanidine HCl) 4 Mg Capsule, 4 MG PO AD PRN for PAIN, CAP 01/07/24 Metformin HCl (Metformin HCl) 1,000 Mg Tablet, 1000 MG PO BID, TAB 01/07/24 Past Medical History Past Medical History: Cancer, Diabetes-Type II, Hypertension Medical History Other: PROSTATE Past Surgical History: Other Surgical History Other: PROSTATE REMOVAL, RT HAND 3RD DIGIT AMPUTATION Family History Family History: DM, HTN Social History Social History: Smokers, Drugs, ETOH, Lives with family, Other ROS Dictation CONSTITUTIONAL: Negative except for HPI HEAD/FACE: Negative except for HPI EENT: Negative except for HPI RESPIRATORY: Negative except for HPI GASTROINTESTINAL/ABDOMINAL: Negative except for HPI GENITOURINARY: Negative except for HPI MUSCULOSKELETAL: Negative except for HPI INTEGUMENTARY: Negative except for HPI NEUROLOGICAL/PSYCH: Negative except for HPI HEMATOLOGIC/LYMPHATIC: Negative except for HPI All Systems Negative, Except as noted above. 13 point review of systems assessed and all negative except for above. Physical Exam Physical Exam Dictation Vital Signs reviewed General Appearance: Alert, oriented x 3, no acute distress, well developed, nourished. Head and Face: non-traumatic. Eyes: PERRL, pink conjunctivas, eyelid no trauma, anterior chamber with arcus senilis. Ears: Pinnas intact and no signs of trauma or erythema ear canals clear and no discharge TM no erythema Nose: No discharge, no bleeding. Oropharynx: Mouth normal, tongue pink, pharynx clear,no erythema, tonsils no exudates, no abscesses noted, mucous membrane moist Neck: Supple, non-tender, no thyromegaly, no masses, no JVD, no bruits Breast:Deferred Chest:No tenderness, no crepitus, no paradoxical movement, no retractions Lungs:Clear, well-ventilated, symmetric, no rales, no wheezing, no rhonchi, no stridor, good breath sounds bilaterally Heart: Regular rate, regular rhythm, no murmur, no gallops Vascular: no peripheral edema, Abdomen: Soft, positive bowel sounds, nondistended, no guarding, nontender, no rebound, no masses no hepatomegaly, no splenomegaly, no Xavier's sign, no hernias. Rectal: Deferred Genital: Deferred Neurological: Normal speech, motor function intact, sensory function intact Musculoskeletal: Neck nontender, full range of motion, back nontender, full range of motion, Extremities: nontender, full range of motion Skin: Color pink, dry, no turgor, no rash, no lacerations, no abrasions, no contusions. Lymphatic: Deferred Results Laboratory and Microbiology Lab and Micro Result Laboratory Tests Test 03/31/24 16:30 White Blood Count 7.0 K/uL (4.8-10.8) Red Blood Count 4.96 MIL/uL (4.50-6.20) Hemoglobin 15.2 g/dL (14.0-18.0) Hematocrit 43.5 % (42-54) Mean Corpuscular Volume 87.7 fL (79-99) Mean Corpuscular Hemoglobin 30.6 pg (27.0-33.0) Mean Corpuscular Hemoglobin Concent 34.9 g/dL (32.0-36.0) Red Cell Distribution Width 12.3 % (11.0-15.5) Platelet Count 392 K/uL (130-400) Mean Platelet Volume 8.4 fL (7.5-10.5) Immature Granulocyte % (Auto) 0.3 % (0-1) Neutrophils (%) (Auto) 67.3 % (40.0-77.0) Lymphocytes (%) (Auto) 22.0 % (21.0-51.0) Monocytes (%) (Auto) 8.0 % (3.0-13.0) Eosinophils (%) (Auto) 2.0 % (0.0-8.0) Basophils (%) (Auto) 0.4 % (0.0-5.0) Neutrophils # (Auto) 4.7 K/uL (1.8-7.7) Lymphocytes # (Auto) 1.5 K/uL (1.0-4.8) Monocytes # (Auto) 0.6 K/uL (0.1-1.0) Eosinophils # (Auto) 0.14 K/uL (0.00-0.70) Basophils # (Auto) 0.03 K/uL (0.00-0.20) Absolute Immature Granulocyte (auto 0.02 K/uL (0-1) Nucleated Red Blood Cells 0.0 % (0.0-0.19) Sodium Level 137 mmol/L (136-145) Potassium Level 4.0 mmol/L (3.5-5.1) Chloride Level 100 mmol/L (101-111) L Carbon Dioxide Level 29 mmol/L (21-32) Blood Urea Nitrogen 16 mg/dL (7-18) Creatinine 1.0 mg/dL (0.5-1.3) Glomerular Filtration Rate Calc 84 mL/min (>90) Random Glucose 188 mg/dL (70-105) H Total Calcium 9.5 mg/dL (8.5-10.1) Magnesium Level 1.60 mg/dL (1.80-2.40) L Troponin I High Sensitivity < 4 ng/L (4-75) L B-Type Natriuretic Peptide 5 pg/mL (0-100) Labs Reviewed?: Yes MDM MDM: Patient is a 64-year-old male with a past medical history of prostate cancer, type 2 diabetes, and hypertension presenting to the emergency department with left-sided chest pain that radiates to his back the pain is reproducible with movement. The pain is worse when the patient lies down. Denies any shortness of breath, cough, or any other symptoms at this time. Physical examination the patient is in no acute distress. Initial EKG shows normal sinus rhythm with no evidence of a STEMI. Cardiac workup was initiated given initial clinical presentation. CBC is unremarkable. There was no leukocytosis, or thrombocytopenia. Hemoglobin is stable at 15.2. Chemistries show a slightly low chloride at 100. There was no hyponatremia or hypokalemia. Kidney function is normal. Sugar is slightly elevated at 188. Magnesium is slightly low at 1.6. Cardiac enzymes are negative. Chest x-ray does not show any radiographic evidence for any acute cardiopulmonary process. Patient has a heart score of two in his low risk at this time. Patient reassessed in his chest pain-free. The patient will need to follow up outpatient for further evaluation. Return precautions discussed Differential diagnosis: ACS, cardiac arrhythmia, costochondritis There are no social concerns with this patient. Prescription drug management Prescriptions will include: None Medical management and examination interpretation discussions were had by me with other qualified healthcare professionals as indicated for the patient's care. ED Course Orders Procedure Category Date Status Time 12 Lead Ekg Tracing- EKG 03/31/24 Resulted Technical 15:00 Cbc With Differential LAB 03/31/24 Complete 16:04 B-Type Natriuretic LAB 03/31/24 Complete Peptide 16:04 Chest 1vw RAD 03/31/24 Resulted 16:04 Magnesium LAB 03/31/24 Complete 16:04 Troponin I High LAB 03/31/24 Complete Sensitivity 16:04 Basic Metabolic Panel LAB 03/31/24 Complete 16:04 Vital Signs Date Time Temp Pulse Resp B/P (MAP) Pulse Ox O2 Delivery O2 Flow Rate FiO2 03/31/24 15:52 98.2 108 20 155/84 99 Room Air 0 [facility] [address] [place] [address] IMAGING REPORT Signed PATIENT: TOMMY ESCOBAR MR#: [id number] : 1960 SEX: M AGE: 64 LOCATION: [facility] ORDER 160 STATUS: REG ER REPORT#: [id number] SERVICE 160 REASON: CP ORDERING PHYSICIAN: MADELYN CROUCH DO PROCEDURE: CXR1VW - CHEST 1VW PORTABLE CHEST RADIOGRAPH INDICATION: CP COMPARISON: 01/07/2024 FINDINGS: Heart size is normal. The pulmonary vascularity and kizzy appear normal. No abnormal pulmonary parenchymal opacity or consolidation identified. No significant pleural effusion noted. No pneumothorax detected. IMPRESSION: No radiographic evidence for any acute cardiopulmonary process. DICTATED BY: OMKAR REED MD DATE: 03/31/241849 ELECTRONICALLY SIGNED BY: OMKAR REED MD DATE: 03/31/241852 HEART Score Response (Comments) Value History: Low suspicion (0) 0 EKG: Normal 0 Age: 45-65yrs (+1) 1 Risk Factors: 1-2 risk factors (+1) 1 Initial Troponin: Normal limit (0) 0 HEART Score Risk: Low Risk for MACE (1-3) Total 2 DX & DISP Disposition: Discharge Departure Impression: Primary Impression: Non-cardiac chest pain Condition: Stable Additional Instructions: Your blood work today is unremarkable. Your EKG does not show any evidence of a heart attack. Your cardiac enzymes are negative. Your kidney function is normal. Your electrolytes are normal. Your chest x-ray does not show any evidence of pneumonia or any other acute abnormality. Your chest/back pain may be musculoskeletal in nature. You will need to follow up with your primary care doctor for further evaluation. Return to the ER for any new or worsening symptoms Referrals: SELF,REFERRAL (PCP) Time of Disposition: 18:48 I have reviewed the case, and I agree with, Diagnosis and Plan I performed the substantive portion of the visit. I have reviewed and personally made and approve the management plan that is documented in the note by myself or the RAJWINDER. I acknowledge for responsibility for the patient's management plan. FANNIE CEDENO Mar 31, 2024 18:49
--- NOTE | 2024-03-31 18:53 | HMCIMG ---
PORTABLE CHEST RADIOGRAPH INDICATION: CP COMPARISON: 01/07/2024 FINDINGS: Heart size is normal. The pulmonary vascularity and kizzy appear normal. No abnormal pulmonary parenchymal opacity or consolidation identified. No significant pleural effusion noted. No pneumothorax detected. IMPRESSION: No radiographic evidence for any acute cardiopulmonary process.
== END 2024-03-31 19:26 | disposition home or self-care (01) ==
LOC: EDH 15:08
DX: R07.89 Other chest pain (principal); E11.9 Type 2 diabetes mellitus without complications; I10 Essential (primary) hypertension; F17.200 Nicotine dependence, unspecified, uncomplicated; Z79.1 Long term (current) use of non-steroidal anti-inflammatories (NSAID); Z79.82 Long term (current) use of aspirin; Z79.84 Long term (current) use of oral hypoglycemic drugs; Z79.899 Other long term (current) drug therapy; Z85.46 Personal history of malignant neoplasm of prostate; Z90.79 Acquired absence of other genital organ(s); Z91.041 Radiographic dye allergy status
CPT/HCPCS: 36415; 71045; 80048; 83735; 83880; 84484; 85025; 93005; 99285